=== PATIENT | female | born 1995 | race Caucasian/White ===

== ENCOUNTER 2021-08-14 00:40 | Inpatient (IN) | payer OTHER, SELFPAY ==
[2021-08-14] VITALS (8 sets, daily range): BP systolic 101–144; BP diastolic 57–92; PULSE 69–128; RESP 16–18; TEMP 36.5–37.1; O2SAT 96–98; BMI 27.6; BMI 27.5
--- NOTE | 2021-08-14 01:18 | CT_ITS ---
STUDY: CT ABDOMEN AND PELVIS WITH CONTRAST REASON FOR EXAM: Female, 26 years old. lower abd pain RADIATION DOSAGE (If Supplied By Facility): CTDIvol = ( 11.17 ) mGy, DLP = ( 854.05 ) mGycm TECHNIQUE: Transaxial images were obtained from the dome of the diaphragm to the symphysis pubis without oral contrast. IV 100mL Isovue-300 was administered. Sagittal and coronal images were reconstructed. Individualized dose optimization techniques were used for this CT. COMPARISON: None. FINDINGS: The visualized lung bases are unremarkable. The visualized portions of the heart are within normal limits. Normal liver. Normal gallbladder and extrahepatic biliary system. Normal spleen. Normal pancreas. Normal bilateral adrenal glands. Normal right kidney. Normal left kidney. Normal visualized stomach. Normal small intestine dilated loops of fluid-filled bowel.. The appendix is visualized and appears normal. Normal abdominal aorta. Normal inferior vena cava. Normal retroperitoneum. Normal urinary bladder. Normal abdominal wall. Normal osseous structures. CT/Abdomen/Pelvis W IV Cont ONLY IMPRESSION: There are dilated loops of fluid-filled bowel. Electronically Signed: Jamaal Niño MD at 3:05 EDT ,
--- NOTE | 2021-08-14 01:20 | ED.VIS.GI ---
HPI HPI - GI History of Present Illness Chief Complaint: Abd Pain Informant: patient Narrative Narrative: Patient is a 26-year-old female with history of Crohn's disease as well has what sounds like a tubo-ovarian abscess requiring surgical intervention with exploratory laparotomy presenting with worsening abdominal pain, nausea, vomiting and diarrhea. Patient states she has had 1 month of intermittent crampy abdominal pain and belching. She had decreased oral intake for the past few days and now worsening of the pain. She describes it as a constant ache but then intermittent sharp pain in her lower abdomen. She states she saw her GI doctor in [place], Dr. Barnett, about 2 weeks ago and she had an endoscopy and blood work. She was told that everything actually looked very good and the cause of her pain was not clear. Patient's last menstrual period was 1 week ago. She has not this pain is different than her Crohn's as well as her prior ovarian infection. Denies any fever or chills. States she does feel very bloated. Does admit to taking an edible prior to arrival to try to help with her pain. Denies any black or blood in her stool. Denies any sick contacts. No other complaints at this time. [facility] Medical History Acute Crohn's disease E. coli sepsis Ovarian cyst Home Medications cetirizine [Zyrtec] 10 mg PO DAILY 08/14/21 [History Last Taken Unknown] mesalamine [Apriso] 1.5 g PO BID 08/14/21 [History Last Taken Unknown] montelukast [Singulair] 10 mg PO DAILY 08/14/21 [History Last Taken Unknown] Allergy/AdvReac Type Severity Reaction Status Date / Time vancomycin Allergy Other Verified 08/14/21 00:41 Social History Smoking Status: Never smoker ROS ROS ED Constitutional Constitutional ED: Denies chills or fever(s) ENT ENT ED: Denies rhinorrhea or sore throat Cardiovascular Cardiovascular: Denies chest pain Respiratory/Chest Respiratory/Chest: Denies dyspnea Gastrointestinal Gastrointestinal: Reports abdominal pain, diarrhea, nausea and vomiting; Denies melena Genitourinary Genitourinary ED: Denies dysuria or hematuria Musculoskeletal Musculoskeletal: Denies arthralgias or myalgias Integumentary Denies rash Neurologic Neurologic: Denies headache(s) or weakness Psychiatric Psychiatric: Denies depression EXAM Physical Exam Const Vital Signs: 08/14/21 00:41 08/14/21 00:45 Temperature 98.1 F Temperature Source Temporal Pulse Rate 128 H 121 H Respiratory Rate 18 Blood Pressure 144/92 H 134/90 H Blood Pressure Mean 109 104 Pulse Ox 96 Oxygen Delivery Method Room Air Positive well nourished and well developed General Appearance ED: well developed and NAD HEENT normocephalic and atraumatic Eyes PERRL and EOMs intact bilaterally Neck supple Resp normal respiratory effort and clear to auscultation bilaterally Cardio regular rate, regular rhythm and no murmurs GI Inspection: abdominal distention Auscultation: normoactive bowel sounds and hyperactive bowel sounds Palpation: soft and tender suprapubic; Negative for guarding or rigid Back/Spine no CVA tenderness Extremity full ROM General Extremety ED: Negative for edema General Extremity: Negative for edema Neuro Sensorium / Orientation: alert Motor Exam: Negative for general weakness Psych mental status grossly normal Skin Lesions: no lesions Rashes: no rashes MDM MDM MDM Narrative Medical decision making narrative: Patient's evaluated for worsening abdominal discomfort, bloating, nausea, vomiting and some diarrhea. She does have a history of Crohn's disease. She has she had recent endoscopy with her regular GI doctor that did not show any acute pathology. On arrival to the ER patient is mildly hypertensive and tachycardic. She is given IV morphine, fluids and Zofran. She is given a liter of IV fluids. On reevaluation she does have some improvement. Abdominal exam is distended with lower abdominal tenderness to palpation. She is not peritoneal. She does have a leukocytosis of 13.7. CMP largely unremarkable. Lactate is normal. CT of the abdomen pelvis does show some free fluid in the pelvis as well as dilated small bowel. Concern is for obstruction as patient does have a history of exploratory laparotomy. Case is discussed with surgery on-call who will evaluate her for consult but feels that likely her presentation is more consistent with Crohn's disease. Recommends consult to GI. Will defer NG tube at this time per recommendation of surgery. Patient admitted for further treatment and management. She does require a dose of Zofran and morphine. Is given a second liter fluid. Tachycardia does improve while in the emergency room. Lab Data Attestation: I reviewed the patient's lab results. Labs: Laboratory Results - last 24 hr 08/14/21 08/14/21 08/14/21 01:30 01:30 01:30 WBC 13.7 H RBC 4.93 Hgb 14.3 Hct 42.3 MCV 85.8 MCH 29.0 MCHC 33.8 RDW Std Deviation 41.5 RDW Coeff of Karla 13.2 Plt Count 463 H MPV 9.3 Immature Gran % (Auto) 0.300 Neut % (Auto) 77.7 H Lymph % (Auto) 12.5 L [place] % (Auto) 8.9 Eos % (Auto) 0.2 Baso % (Auto) 0.4 Absolute Neuts (auto) 10.6 H Absolute Lymphs (auto) 1.71 Nucleated RBC % 0 Sodium 139 Potassium 3.6 Chloride 104 Carbon Dioxide 24.0 Anion Gap 11 BUN 13 Creatinine 0.77 Estim Creat Clear Calc 111.69 Est GFR (MDRD) Af Amer 117 Est GFR (MDRD) Non-Af 96 BUN/Creatinine Ratio 16.9 Glucose 119 H Lactic Acid 0.8 Calcium 9.1 Total Bilirubin 0.60 AST 11 L ALT 19 Alkaline Phosphatase 69 Total Protein 7.6 Albumin 3.5 Globulin 4.1 Albumin/Globulin Ratio 0.9 Lipase 70 L Urine Color Urine Clarity Urine pH Ur Specific [place] Urine Protein Urine Glucose (UA) Urine Ketones Urine Occult Blood Urine Nitrite Urine Bilirubin Urine Urobilinogen Ur Leukocyte Esterase Urine RBC Urine WBC Ur Squamous Epith Cells Urine Bacteria Urine Mucus Urine Test 08/14/21 01:48 WBC RBC Hgb Hct MCV MCH MCHC RDW Std Deviation RDW Coeff of Karla Plt Count MPV Immature Gran % (Auto) Neut % (Auto) Lymph % (Auto) [place] % (Auto) Eos % (Auto) Baso % (Auto) Absolute Neuts (auto) Absolute Lymphs (auto) Nucleated RBC % Sodium Potassium Chloride Carbon Dioxide Anion Gap BUN Creatinine Estim Creat Clear Calc Est GFR (MDRD) Af Amer Est GFR (MDRD) Non-Af BUN/Creatinine Ratio Glucose Lactic Acid Calcium Total Bilirubin AST ALT Alkaline Phosphatase Total Protein Albumin Globulin Albumin/Globulin Ratio Lipase Urine Color Yellow Urine Clarity Clear Urine pH 6.0 Ur Specific [place] 1.025 Urine Protein 30 H Urine Glucose (UA) Normal Urine Ketones 150 A* Urine Occult Blood Negative Urine Nitrite Negative Urine Bilirubin 1 H Urine Urobilinogen 1 H Ur Leukocyte Esterase 25 H Urine RBC 5-10 SEEN Urine WBC 0-5 SEEN Ur Squamous Epith Cells 5-10 SEEN Urine Bacteria 1+ Urine Mucus 2+ Urine Test Negative Radiography Diagnostic Testing: Clinical Impression(s) from Imaging Studies Abdomen/Pelvis CT 08/14/21 01:18 IMPRESSION: There are dilated loops of fluid-filled bowel. Electronically Signed: Jamaal Niño MD at 3:05 EDT , Discharge Plan Triage Chief Complaint: Abd Pain Other Complaint: Nausea/Vomiting/Diarrhea ED Provider: Jacqueline Garvin Dx/Rx/DC Orders Clinical Impression: Abdominal pain, Small bowel obstruction Disposition Disposition: Acute Care Hospital [facility]
[2021-08-14] MEDS: 0.9% Normal Saline 1,000 ML 1000 ML IV (01:31)
[2021-08-14] MEDS: Ondansetron 4 MG/2 ML Vial IV ×5 (01:31→22:27)
[2021-08-14] MEDS: Morphine 4 MG/ML Syringe IV ×2 (01:31→04:44)
[2021-08-14 01:38] LABS: Absolute Lymphocyte Count 1.71 X10^3/uL (0.83-4.51); Absolute Neutrophil Count 10.6 X10^3/uL (2.0-7.7); Basophil# 0.05 X10^3/uL; Basophil% 0.4 % (0-1); Eosinophil# 0.03 X10^3/uL; Eosinophils% 0.2 % (0-5); Hematocrit 42.3 % (37-47); Hemoglobin 14.3 g/dL (12.0-15.0); Lymphocyte # 1.71 X10^3/ul (0.83-4.51); Lymphocyte % 12.5 % (19-41); Mean Corp Hgb Conc 33.8 g/dL (32-36); Mean Corpuscular Volume 85.8 fL (81-99); Mean Platelet Vol. 9.3 fl (6.2-12.0); Monocyte# 1.22 X10^3/uL; Monocyte% 8.9 % (0-10); NRBC Flagged by Analyzer 0 % (0-5); Neutrophil # 10.63 X10^3/uL (2.7-7.7); Neutrophil % 77.7 % (47-70); Platelet Count 463 K/mm3 (150-450); RBC Distribution Width CV 13.2 % (11.6-14.6); RBC Distribution Width SD 41.5 fl (35.1-43.9); Red Blood Count 4.93 M/mm3 (4.2-5.4); White Blood Count 13.7 K/mm3 (4.4-11.0)
[2021-08-14 01:59] LABS: Color, Urine Yellow (Yellow); Glucose, Dipstick Normal (Normal); Leukocyte Esterase-Dipstick 25 /ul (Negative); Nitrite-Dipstick Negative (Negative); Occult Blood-Urine Negative /ul (Negative); Protein-Dipstick 30 mg/dl (Negative); Specific Gravity, Urine 1.025 (1.002-1.030); Urine Clarity Clear (Clear); Urine Urobilinogen 1 mg/dl (Normal)
[2021-08-14 02:01] LABS: Ketone-Dipstick 150 mg/dl (Negative); Urine Bilirubin Dipstick 1 mg/dL (Negative)
[2021-08-14 02:01] LABS: ALB/GLOB Ratio 0.9 RATIO (0.9-2.4); AST(SGOT) 11 U/L (15-37); Alanine Aminotransfer ALT/SGPT 19 U/L (13-56); Albumin, Serum 3.5 g/dL (3.2-5.0); Alkaline Phosphatase 69 U/L (45-117); Anion Gap 11 (5-15); BUN 13 mg/dL (7-18); BUN/Creat Ratio 16.9 RATIO (10-20); Calcium,Total 9.1 mg/dL (8.5-10.1); Chloride 104 mmol/L (98-107); Creatinine, Serum 0.77 mg/dL (0.55-1.02); EST Glomerular Filtration Rate 96 mL/min (>60); Est Glom Filt Rate - Afr Amer 117 mL/min (>60); Estimated Creatinine Clearance 111.69 ml/min; Globulin 4.1 g/dL (2.2-4.2); Glucose 119 mg/dL (74-106); Lipase 70 U/L (73-393); Potassium 3.6 mmol/L (3.5-5.1); Protein, Total 7.6 g/dL (6.4-8.2); Sodium Level 139 mmol/L (136-145)
[2021-08-14 02:03] LABS: Internal QC Validated? YES +Cl - CLEAR BKGD; Pregnancy, Urine Negative Negative
[2021-08-14 02:15] LABS: Lactic Acid 0.8 mmol/L (0.4-1.9)
[2021-08-14 02:17] LABS: Squamous Epithelial Cells - UA 5-10 SEEN /hpf (5-10)
[2021-08-14 02:18] LABS: Bacteria 1+ /hpf (None Seen); Mucous, Urine 2+ /hpf (<or=2+); Red Blood Cells-Urine 5-10 SEEN /hpf (0-5); White Blood Cells 0-5 SEEN /hpf (0-5)
--- NOTE | 2021-08-14 03:47 | EX.PCM.CON.S ---
Assessment & Plan Assessment/Plan (1) Abdominal pain: QUALIFIERS: Abdominal location: generalized Qualified Code(s): R10.84 - Generalized abdominal pain PLAN: With her being normal small intestine there is nothing that appears to be a small bowel obstruction here and at this time I would not recommend NG tube decompression. The colon itself does look dilated does look fluid-filled and is concerning for Crohn's disease. This time the patient does not need a surgical intervention recommend hospitalist admission with consultation to GI for her Crohn's disease which may or may not be active. HPI Consult Data Date of Consult: 08/14/21 HPI Narrative HPI Narrative: BARRETT HUITRON, Patient is a 26-year-old female with history of Crohn's disease as well has what sounds like a tubo-ovarian abscess requiring surgical intervention with exploratory laparotomy presenting with worsening abdominal pain, nausea, vomiting and diarrhea. Patient states she has had 1 month of intermittent crampy abdominal pain and belching. She had decreased oral intake for the past few days and now worsening of the pain. She describes it as a constant ache but then intermittent sharp pain in her lower abdomen. She states she saw her GI doctor in [place], Dr. Barnett, about 2 weeks ago and she had an endoscopy and blood work. She was told that everything actually looked very good and the cause of her pain was not clear. Patient's last menstrual period was 1 week ago. She has not this pain is different than her Crohn's as well as her prior ovarian infection. Denies any fever or chills. States she does feel very bloated. Does admit to taking an edible prior to arrival to try to help with her pain. Denies any black or blood in her stool. Denies any sick contacts. No other complaints at this time. CT scan showed Normal visualized stomach. Normal small intestine dilated loops of fluid-filled bowel.. The appendix is visualized and appears normal. [facility] Medical History Acute Crohn's disease E. coli sepsis Ovarian cyst Home Medications cetirizine [Zyrtec] 10 mg PO DAILY 08/14/21 [History Last Taken Unknown] mesalamine [Apriso] 1.5 g PO BID 08/14/21 [History Last Taken Unknown] montelukast [Singulair] 10 mg PO DAILY 08/14/21 [History Last Taken Unknown] Allergy/AdvReac Type Severity Reaction Status Date / Time vancomycin Allergy Other Verified 08/14/21 00:41 Social History Smoking Status: Never smoker ROS Constitutional Constitutional: Denies chills or fever(s) Cardiovascular Cardiovascular: Denies chest pain Respiratory/Chest Respiratory/Chest: Denies shortness of breath at rest Gastrointestinal Gastrointestinal: Reports abdominal pain, diarrhea, nausea and vomiting; Denies melena Genitourinary Genitourinary: Denies change in urinary stream Physical Exam Const alert, oriented x3 and no apparent distress General Appearance: cooperative HEENT normocephalic and head/scalp atraumatic Eyes PERRL and EOMs intact bilaterally Resp clear to auscultation bilaterally Cardio Rate: regular rate and tachycardic GI soft to palpation Inspection: Negative for abdominal distention Auscultation: normoactive bowel sounds Palpation: tender; Negative for guarding Lab / Micro Data Result Diagrams: 08/14/21 01:30 08/14/21 01:30 Labs: Laboratory Results - last 24 hr 08/14/21 01:30: WBC 13.7 H, RBC 4.93, Hgb 14.3, Hct 42.3, MCV 85.8, MCH 29.0, MCHC 33.8, RDW Std Deviation 41.5, RDW Coeff of Karla 13.2, Plt Count 463 H, MPV 9.3, Immature Gran % (Auto) 0.300, Neut % (Auto) 77.7 H, Lymph % (Auto) 12.5 L, [place] % (Auto) 8.9, Eos % (Auto) 0.2, Baso % (Auto) 0.4, Absolute Neuts (auto) 10.6 H, Absolute Lymphs (auto) 1.71, Nucleated RBC % 0 08/14/21 01:30: Sodium 139, Potassium 3.6, Chloride 104, Carbon Dioxide 24.0, Anion Gap 11, BUN 13, Creatinine 0.77, Estim Creat Clear Calc 111.69, Est GFR (MDRD) Af Amer 117, Est GFR (MDRD) Non-Af 96, BUN/Creatinine Ratio 16.9, Glucose 119 H, Calcium 9.1, Total Bilirubin 0.60, AST 11 L, ALT 19, Alkaline Phosphatase 69, Total Protein 7.6, Albumin 3.5, Globulin 4.1, Albumin/Globulin Ratio 0.9, Lipase 70 L 08/14/21 01:30: Lactic Acid 0.8 08/14/21 01:48: Urine Color Yellow, Urine Clarity Clear, Urine pH 6.0, Ur Specific [place] 1.025, Urine Protein 30 H, Urine Glucose (UA) Normal, Urine Ketones 150 A*, Urine Occult Blood Negative, Urine Nitrite Negative, Urine Bilirubin 1 H, Urine Urobilinogen 1 H, Ur Leukocyte Esterase 25 H, Urine RBC 5-10 SEEN, Urine WBC 0-5 SEEN, Ur Squamous Epith Cells 5-10 SEEN, Urine Bacteria 1+, Urine Mucus 2+, Urine Test Negative Radiology Impression Abdomen/Pelvis CT 08/14/21 01:18 IMPRESSION: There are dilated loops of fluid-filled bowel. Electronically Signed: Jamaal Niño MD at 3:05 EDT ,
--- NOTE | 2021-08-14 04:27 | PCM.HP.STD ---
HPI - General General Date of Admission: 08/14/21 HPI Narrative BARRETT HUITRON, is a 26 F who presents to the emergency room with acute abdominal pain. 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 Barnett approximately 2 weeks ago and was scoped and was given a clean bill of health. Her Crohn's medications were changed at that time. She has subsequently developed overnight abdominal pain and CT scan reveals dilated loops of bowel. Surgical consultation was done in the emergency room by Dr. Degroot and he felt it was nonsurgical at this time and that likely this is a flare-up of her Crohn's disease. Patient will be admitted and gastroenterology will be consulted. [facility] Medical History Acute Crohn's disease E. coli sepsis Ovarian cyst Home Medications cetirizine [Zyrtec] 10 mg PO DAILY 08/14/21 [History Last Taken Unknown] mesalamine [Apriso] 1.5 g PO BID 08/14/21 [History Last Taken Unknown] montelukast [Singulair] 10 mg PO DAILY 08/14/21 [History Last Taken Unknown] Allergy/AdvReac Type Severity Reaction Status Date / Time vancomycin Allergy Other Verified 08/14/21 00:41 Social History Smoking Status: Never smoker ROS Constitutional Constitutional: Denies chills or fever(s) Eyes Eyes: Denies blurry vision ENT HEENT: Denies abnormal hearing Cardiovascular Cardiovascular: Denies chest pain Respiratory/Chest Respiratory/Chest: Denies cough Gastrointestinal Gastrointestinal: Reports abdominal pain and nausea Genitourinary Genitourinary: Denies dysuria Musculoskeletal Musculoskeletal: Denies back pain Integumentary Integumentary: Denies dry skin Neurologic Neurologic: Denies abnormal gait Psychiatric Psychiatric: Denies anxiety Vital Signs Vital Signs Vital Signs: 08/14/21 00:41 08/14/21 00:45 Temperature 98.1 F Temperature Source Temporal Pulse Rate 128 H 121 H Respiratory Rate 18 Blood Pressure 144/92 H 134/90 H Blood Pressure Mean 109 104 Pulse Ox 96 Oxygen Delivery Method Room Air Weight Weight: 181 lb 10.574 oz Body Mass Index (BMI) 27.6 Physical Exam Const oriented x3 General Appearance: cooperative HEENT head/scalp atraumatic Neck supple Lymph Lymphatic: no lymphadenopathy noted Resp normal respiratory effort and clear to auscultation bilaterally Cardio regular rate, regular rhythm, S1 normal heart sound and S2 normal heart sound GI Auscultation: hypoactive bowel sounds Palpation: tender other (generalized); Negative for guarding Extremity no clubbing, cyanosis or edema Skin General Skin Exam: turgor normal Psych affect normal Results Lab / Micro Data Result Diagrams: 08/14/21 01:30 08/14/21 01:30 Labs: Laboratory Results - last 24 hr 08/14/21 01:30: WBC 13.7 H, RBC 4.93, Hgb 14.3, Hct 42.3, MCV 85.8, MCH 29.0, MCHC 33.8, RDW Std Deviation 41.5, RDW Coeff of Karla 13.2, Plt Count 463 H, MPV 9.3, Immature Gran % (Auto) 0.300, Neut % (Auto) 77.7 H, Lymph % (Auto) 12.5 L, [place] % (Auto) 8.9, Eos % (Auto) 0.2, Baso % (Auto) 0.4, Absolute Neuts (auto) 10.6 H, Absolute Lymphs (auto) 1.71, Nucleated RBC % 0 08/14/21 01:30: Sodium 139, Potassium 3.6, Chloride 104, Carbon Dioxide 24.0, Anion Gap 11, BUN 13, Creatinine 0.77, Estim Creat Clear Calc 111.69, Est GFR (MDRD) Af Amer 117, Est GFR (MDRD) Non-Af 96, BUN/Creatinine Ratio 16.9, Glucose 119 H, Calcium 9.1, Total Bilirubin 0.60, AST 11 L, ALT 19, Alkaline Phosphatase 69, Total Protein 7.6, Albumin 3.5, Globulin 4.1, Albumin/Globulin Ratio 0.9, Lipase 70 L 08/14/21 01:30: Lactic Acid 0.8 08/14/21 01:48: Urine Color Yellow, Urine Clarity Clear, Urine pH 6.0, Ur Specific [place] 1.025, Urine Protein 30 H, Urine Glucose (UA) Normal, Urine Ketones 150 A*, Urine Occult Blood Negative, Urine Nitrite Negative, Urine Bilirubin 1 H, Urine Urobilinogen 1 H, Ur Leukocyte Esterase 25 H, Urine RBC 5-10 SEEN, Urine WBC 0-5 SEEN, Ur Squamous Epith Cells 5-10 SEEN, Urine Bacteria 1+, Urine Mucus 2+, Urine Test Negative Radiology Impression Abdomen/Pelvis CT 08/14/21 01:18 IMPRESSION: There are dilated loops of fluid-filled bowel. Electronically Signed: Jamaal Niño MD at 3:05 EDT , Assessment & Plan Assessment/Plan (1) Abdominal pain: QUALIFIERS: Abdominal location: generalized Qualified Code(s): R10.84 - Generalized abdominal pain (2) Acute Crohn's disease: PLAN: 1. abdominal pain secondary to acute Crohn's disease?admit patient to general medical floor, consult gastroenterology, initiate steroid therapy and Dilaudid as needed for pain along with Zofran for nausea as needed patient will be maintained n.p.o. and start IV fluids at 125 cc/h normal saline 2. DVT prophylaxis?patient is able to ambulate to the bathroom and back at this time no prophylaxis indicated Charges/Coding Visit Charges Inpatient E&M: 35844 Init Hosp L3
[2021-08-14] MEDS: 0.9% Normal Saline 1,000 ML 999 ML IV (04:45)
[2021-08-14] MEDS: 0.9% Normal Saline 1,000 ML 125 ML IV ×4 (05:07→22:25)
[2021-08-14] MEDS: HYDROmorphone 0.5 MG/0.5 ML SYRINGE IV ×5 (05:09→22:24)
[2021-08-14 06:02] LABS: Absolute Lymphocyte Count 1.85 X10^3/uL (0.83-4.51); Absolute Neutrophil Count 5.5 X10^3/uL (2.0-7.7); Basophil# 0.04 X10^3/uL; Basophil% 0.5 % (0-1); Eosinophil# 0.03 X10^3/uL; Eosinophils% 0.4 % (0-5); Hematocrit 36.9 % (37-47); Hemoglobin 12.1 g/dL (12.0-15.0); Lymphocyte # 1.85 X10^3/ul (0.83-4.51); Lymphocyte % 22.1 % (19-41); Mean Corp Hgb Conc 32.8 g/dL (32-36); Mean Corpuscular Hgb 28.7 pg (27.0-32.0); Mean Corpuscular Volume 87.4 fL (81-99); Mean Platelet Vol. 8.6 fl (6.2-12.0); Monocyte% 10.7 % (0-10); NRBC Flagged by Analyzer 0 % (0-5); Neutrophil # 5.53 X10^3/uL (2.7-7.7); Neutrophil % 65.8 % (47-70); Platelet Count 363 K/mm3 (150-450); RBC Distribution Width CV 13.3 % (11.6-14.6); RBC Distribution Width SD 42.4 fl (35.1-43.9); Red Blood Count 4.22 M/mm3 (4.2-5.4); White Blood Count 8.4 K/mm3 (4.4-11.0)
[2021-08-14 06:40] LABS: ALB/GLOB Ratio 0.9 RATIO (0.9-2.4); AST(SGOT) 9 U/L (15-37); Alanine Aminotransfer ALT/SGPT 17 U/L (13-56); Albumin, Serum 2.8 g/dL (3.2-5.0); Alkaline Phosphatase 55 U/L (45-117); Anion Gap 5 (5-15); BUN 11 mg/dL (7-18); BUN/Creat Ratio 18.2 RATIO (10-20); Chloride 109 mmol/L (98-107); EST Glomerular Filtration Rate 127 mL/min (>60); Est Glom Filt Rate - Afr Amer 153 mL/min (>60); Estimated Creatinine Clearance 143.33 ml/min; Globulin 3.2 g/dL (2.2-4.2); Glucose 106 mg/dL (74-106); Magnesium 1.8 mg/dL (1.6-2.6); Potassium 3.6 mmol/L (3.5-5.1); Sodium Level 138 mmol/L (136-145)
[2021-08-14 09:24] LABS: Amphetamine Urine VISTA NEGATIVE (<1000 ng/mL); Barbiturate Urine VISTA NEGATIVE (< 200 ng/mL); Benzodiazepine Urine VISTA NEGATIVE (< 200 ng/mL); Cocaine Urine VISTA NEGATIVE (< 300 ng/mL); Ecstacy Urine VISTA NEGATIVE (< 500 ng/mL); Methadone Urine VISTA NEGATIVE (< 300 ng/mL); PCP Urine VISTA NEGATIVE (< 25 ng/mL); THC Urine VISTA POSITIVE (< 50 ng/mL); Vista UDS pH Range 5
[2021-08-14 09:30] LABS: Erythrocyte Sedimentation Rate 12 mm/hr (0-30)
--- NOTE | 2021-08-14 11:50 | CASEMGMT ---
RN CM Face to Face with patient for initial transition planning/care coordination assessment. RN CM introduced self and role at [facility]. Patient lying in bed, alert and oriented, mother and MIL at bedside. Patient willing to participate in assessment and is able to answer all questions appropriately. Care providers, pharmacy, and demographics verified. Patient wishes to discharge home, denies need for home health at this time. Patient states she has no further needs or concerns at this time. CM to follow for discharge planning needs that may arise. PCP: Victor Hugo Specialists: ESAU Barnett Preferred Pharmacy: [facility] retail at discharge. Insurance: [facility] Prescription Benefit: yes Living Will/HPOA: none LNOK: Living Arrangements: Patient lives with at her parents or at inlaw as they search for home to purchase. Patient states she is independent and able to ambulate stairs. Transportation: self, husand, parents DME/HHC: Patient denies DME or previous HHC Disposition Plan: Patient to discharge home with family support and follow-up plans in place. Milana AMESN, RN, CM
--- NOTE | 2021-08-14 11:51 | PN.HOSP_ITS ---
Subjective Subjective Patient seen and examined.Her mother was by her bedside. She said she wsa feeling much better. Abdominal pain had improved. She denied any nausea, vomiting or diarrhea since admission. Review of systems is otherwise negative. She is awaiting GI evaluation. Objective Data Objective Data Vital Signs: Vital Signs Temp Pulse Resp BP Pulse Ox 98.7 F 79 16 101/61 96 08/14/21 09:00 08/14/21 09:00 08/14/21 09:00 08/14/21 09:00 08/14/21 09:00 Oxygen Delivery Method Room Air Weight: 181 lb 10.574 oz Body Mass Index (BMI) 27.5 Intake & Output: Intake and Output for Last 24 Hours 08/12/21 08/13/21 08/14/21 23:59 23:59 23:59 Intake Total 2485.42 / 2485.42 Balance 2485.42 / 2485.42 Lab / Micro Data Result Diagrams: 08/14/21 05:50 08/14/21 05:50 Labs: Laboratory Results - last 24 hr 08/14/21 01:30: WBC 13.7 H, RBC 4.93, Hgb 14.3, Hct 42.3, MCV 85.8, MCH 29.0, MCHC 33.8, RDW Std Deviation 41.5, RDW Coeff of Karla 13.2, Plt Count 463 H, MPV 9.3, Immature Gran % (Auto) 0.300, Neut % (Auto) 77.7 H, Lymph % (Auto) 12.5 L, [place] % (Auto) 8.9, Eos % (Auto) 0.2, Baso % (Auto) 0.4, Absolute Neuts (auto) 10.6 H, Absolute Lymphs (auto) 1.71, Nucleated RBC % 0 08/14/21 01:30: Sodium 139, Potassium 3.6, Chloride 104, Carbon Dioxide 24.0, Anion Gap 11, BUN 13, Creatinine 0.77, Estim Creat Clear Calc 111.69, Est GFR (MDRD) Af Amer 117, Est GFR (MDRD) Non-Af 96, BUN/Creatinine Ratio 16.9, Glucose 119 H, Calcium 9.1, Total Bilirubin 0.60, AST 11 L, ALT 19, Alkaline Phosphatase 69, Total Protein 7.6, Albumin 3.5, Globulin 4.1, Albumin/Globulin Ratio 0.9, Lipase 70 L 08/14/21 01:30: Lactic Acid 0.8 08/14/21 01:48: Urine Color Yellow, Urine Clarity Clear, Urine pH 6.0, Ur Specific [place] 1.025, Urine Protein 30 H, Urine Glucose (UA) Normal, Urine Ketones 150 A*, Urine Occult Blood Negative, Urine Nitrite Negative, Urine Bilirubin 1 H, Urine Urobilinogen 1 H, Ur Leukocyte Esterase 25 H, Urine RBC 5- 10 SEEN, Urine WBC 0-5 SEEN, Ur Squamous Epith Cells 5-10 SEEN, Urine Bacteria 1+, Urine Mucus 2+, Urine Test Negative 08/14/21 01:48: Urine Opiates Screen POSITIVE H, Urine Methadone Screen NEGATIVE, Ur Barbiturates Screen NEGATIVE, Ur Phencyclidine Scrn NEGATIVE, Ur Amphetamines Screen NEGATIVE, MDMA (Ecstasy) Screen NEGATIVE, U Benzodiazepines Scrn NEGATIVE, Urine Cocaine Screen NEGATIVE, U Cannabinoids Screen POSITIVE H, Ur Drug Screen Comment 08/14/21 05:50: WBC 8.4, RBC 4.22, Hgb 12.1, Hct 36.9 L, MCV 87.4, MCH 28.7, MCHC 32.8, RDW Std Deviation 42.4, RDW Coeff of Karla 13.3, Plt Count 363, MPV 8.6, Immature Gran % (Auto) 0.500, Neut % (Auto) 65.8, Lymph % (Auto) 22.1, [place] % (Auto) 10.7 H, Eos % (Auto) 0.4, Baso % (Auto) 0.5, Absolute Neuts (auto) 5.5, Absolute Lymphs (auto) 1.85, Nucleated RBC % 0 08/14/21 05:50: Sodium 138, Potassium 3.6, Chloride 109 H, Carbon Dioxide 24.0, Anion Gap 5, BUN 11, Creatinine 0.60, Estim Creat Clear Calc 143.33, Est GFR (MDRD) Af Amer 153, Est GFR (MDRD) Non-Af 127, BUN/Creatinine Ratio 18.2, Glucose 106, Calcium 8.0 L, Magnesium 1.8, Total Bilirubin 0.50, AST 9 L, ALT 17, Alkaline Phosphatase 55, Total Protein 6.0 L, Albumin 2.8 L, Globulin 3.2, Albumin/Globulin Ratio 0.9 08/14/21 05:50: ESR 12 08/14/21 05:50: C-React Prot Ext Range 15.00 H Radiography Diagnostic Testing: Radiology Impression Abdomen/Pelvis CT 08/14/21 01:18 IMPRESSION: There are dilated loops of fluid-filled bowel. Electronically Signed: Jamaal Niño MD at 3:05 EDT Reading Location ID and State: [address] [place] [address] Tel , Service support , Physical Exam Const alert, oriented x3 and no apparent distress Exam Limitations: no limitations HEENT head/scalp atraumatic and moist oral mucous membranes Head and Scalp: normocephalic Eyes PERRL, EOMs intact bilaterally and conjunctivae normal Neck no lymphadenopathy, supple and no JVD Resp normal respiratory effort, no retractions, no use of accessory muscles and clear to auscultation bilaterally Cardio regular rate, regular rhythm, S1 normal heart sound, S2 normal heart sound and no murmurs GI normal to inspection, nondistended, normoactive bowel sounds, soft to palpation, non-tender and non-distended Extremity normal to inspection, full ROM and no clubbing, cyanosis or edema Peripheral Pulses: Yes pulses 2+ throughout Skin no rashes or lesions noted Neuro CN's II-XII intact bilaterally and moves all extremities Sensorium / Orientation: awake Psych affect normal Assessment & Plan Assessment/Plan (1) Acute Crohn's disease: (2) Abdominal pain: QUALIFIERS: Abdominal location: generalized Qualified Code(s): R10.84 - Generalized abdominal pain PLAN: #Acute flare up of Crohn's disease * improving. Abdominal pain is much better * she denies any diarrhea * on IV solumedrol. CT of the abdomen showed dilated loops of bowel * general surgery evaluated patient and thought it was all non surgical, and didnt think it was small bowel obstruction. * GI consulted; awaiting recommendations. * continue gentle hydration with IVF DVT prophylaxis: SCDs Charges/Coding Visit Charges Inpatient E&M: 91680 Subs Hosp L2
--- NOTE | 2021-08-14 17:58 | PCM.CONS.GEN ---
Assessment & Plan Assessment/Plan (1) Acute Crohn's disease: PLAN: Elevated CRP and a dilated colon possibly secondary to exacerbation of Crohn's disease. She should undergo colonoscopy to evaluate her however lower GI tract. Recommend continued steroid therapy. (2) Abdominal pain: QUALIFIERS: Abdominal location: generalized Qualified Code(s): R10.84 - Generalized abdominal pain PLAN: Abdominal pain is possibly secondary to marijuana hyperemesis syndrome. However she can have Crohn's disease of the upper GI tract which she should undergo an upper endoscopy evaluate upper GI tract. She was explained alternatives, risk, benefits including outstanding bleeding, infection, sepsis, perforation, need for Erik to . Have an ASA of 1. HPI Consult Data Date of Consult: 08/14/21 HPI Narrative HPI Narrative: BARRETT HUITRON, is a 26 F who presents to the ED with worsening abdominal pain. She has a past medical history of Crohn's disease of the terminal ileum and all the colon on Apriso therapy. She has been having intermittent crampy abdominal pain associated with nausea and vomiting for the last month. She attributed to stress due to her recent move from [facility] and her wedding is coming up later this year. She recently underwent a colonoscopy 2-1/2 weeks ago and was given a clean [employer]. However she still has been having crampy abdominal pain associate with nausea vomiting and occasional diarrhea. She has been off of her Apriso for month. In the ED she was hypertensive and tachycardic. Biochemical work-up showed elevated white blood count count at 13.5, elevated platelet count of 496. BUN/creatinine ratio was normal. She had a CT scan abdomen pelvis that showed a dilated colon in some dilated loops of small bowel. She was seen by surgery for possible small bowel obstruction. It was deemed she did not have a small bowel obstruction. At this time she still having some crampy abdominal pain but it is getting little bit better. I ordered inflammatory markers and her CRP is elevated along with a decreased albumin. I also ordered a urine drug screen and it was positive for marijuana. She does admit to eating edibles for the last 6 months to help her nausea. She does also admit to frequent showers to help her nausea and crampy abdominal pain. [facility] Medical History (Updated 08/14/21 @ 04:[address] Nickolas Joe MD) Acute Crohn's disease Anemia Anxiety Asthma E. coli sepsis Ovarian cyst Home Medications cetirizine [Zyrtec] 10 mg PO DAILY 08/14/21 [History Last Taken Unknown] mesalamine [Apriso] 1.5 g PO BID 08/14/21 [History Last Taken Unknown] montelukast [Singulair] 10 mg PO DAILY 08/14/21 [History Last Taken Unknown] Allergy/AdvReac Type Severity Reaction Status Date / Time vancomycin Allergy Other Verified 08/14/21 00:41 Social History Smoking Status: Never smoker ROS Review of Systems ROS Unobtainable: other Constitutional Constitutional: Denies fatigue, fever(s), poor appetite, weight gain or weight loss ENT HEENT: Denies mouth lesions Cardiovascular Cardiovascular: Denies abdominal bloating, abdominal edema or abdominal pain Respiratory/Chest Respiratory/Chest: Denies change in mental status, change in phlegm color, chest congestion or chest tightness Gastrointestinal Gastrointestinal: Denies belching, bloating, change in bowel habits, change in stool character, chewing difficulty, coffee ground emesis, constipation, cramping, diarrhea, dyspepsia, dysphagia, early satiety, excessive flatus, fecal incontinence, heartburn, hematemesis, hematochezia, hemorrhoids, loose stools, melena, nausea, odynophagia, rectal bleeding, tenesmus, vomiting or weight changes Genitourinary Genitourinary: Denies abdominal discomfort, burning urination or itching Musculoskeletal Musculoskeletal: Reports as per HPI; Denies muscle weakness or myalgias Integumentary Integumentary: Denies jaundice Neurologic Neurologic: Denies lack of coordination or weakness Psychiatric Psychiatric: Denies confusion, depression, memory loss, mood swings, paranoia or suicidal ideation Endocrine Endocrinology: Denies systems reviewed and no addt'l complaints, except as documented Hematologic/Lymphatic Hematologic/Lymphatic: Denies anemia, easy bleeding, easy bruising or lymphadenopathy Allergic/Immunologic Allergic/Immunologic: Denies systems reviewed and no addt'l complaints, except as documented Physical Exam Const alert General Appearance: cooperative Orientation / Consciousness: oriented to person HEENT hearing grossly normal bilaterally Head and Scalp: normal to inspection Face and Sinus: face symmetric Nose: external nose normal Mouth: oral and palatal mucosa normal Eyes conjunctivae normal General Eye: normal appearance of both eyes Neck full ROM General: normal visual inspection Lymph Lymphatic: no lymphadenopathy noted Chest inspection of chest normal and palpation of chest normal Chest: symmetrical chest wall rise Resp normal respiratory effort Effort and Inspection: able to speak in complete sentences Cardio regular rate GI non-distended Percussion: normal to percussion Rectal Exam: deferred Neuro Speech: speech normal Gait (Neuro): normal gait Lab / Micro Data Result Diagrams: 08/14/21 05:50 08/14/21 05:50 Labs: Laboratory Results - last 24 hr 08/14/21 01:30: WBC 13.7 H, RBC 4.93, Hgb 14.3, Hct 42.3, MCV 85.8, MCH 29.0, MCHC 33.8, RDW Std Deviation 41.5, RDW Coeff of Karla 13.2, Plt Count 463 H, MPV 9.3, Immature Gran % (Auto) 0.300, Neut % (Auto) 77.7 H, Lymph % (Auto) 12.5 L, [place] % (Auto) 8.9, Eos % (Auto) 0.2, Baso % (Auto) 0.4, Absolute Neuts (auto) 10.6 H, Absolute Lymphs (auto) 1.71, Nucleated RBC % 0 08/14/21 01:30: Sodium 139, Potassium 3.6, Chloride 104, Carbon Dioxide 24.0, Anion Gap 11, BUN 13, Creatinine 0.77, Estim Creat Clear Calc 111.69, Est GFR (MDRD) Af Amer 117, Est GFR (MDRD) Non-Af 96, BUN/Creatinine Ratio 16.9, Glucose 119 H, Calcium 9.1, Total Bilirubin 0.60, AST 11 L, ALT 19, Alkaline Phosphatase 69, Total Protein 7.6, Albumin 3.5, Globulin 4.1, Albumin/Globulin Ratio 0.9, Lipase 70 L 08/14/21 01:30: Lactic Acid 0.8 08/14/21 01:48: Urine Color Yellow, Urine Clarity Clear, Urine pH 6.0, Ur Specific [place] 1.025, Urine Protein 30 H, Urine Glucose (UA) Normal, Urine Ketones 150 A*, Urine Occult Blood Negative, Urine Nitrite Negative, Urine Bilirubin 1 H, Urine Urobilinogen 1 H, Ur Leukocyte Esterase 25 H, Urine RBC 5-10 SEEN, Urine WBC 0-5 SEEN, Ur Squamous Epith Cells 5-10 SEEN, Urine Bacteria 1+, Urine Mucus 2+, Urine Test Negative 08/14/21 01:48: Urine Opiates Screen POSITIVE H, Urine Methadone Screen NEGATIVE, Ur Barbiturates Screen NEGATIVE, Ur Phencyclidine Scrn NEGATIVE, Ur Amphetamines Screen NEGATIVE, MDMA (Ecstasy) Screen NEGATIVE, U Benzodiazepines Scrn NEGATIVE, Urine Cocaine Screen NEGATIVE, U Cannabinoids Screen POSITIVE H, Ur Drug Screen Comment 08/14/21 05:50: WBC 8.4, RBC 4.22, Hgb 12.1, Hct 36.9 L, MCV 87.4, MCH 28.7, MCHC 32.8, RDW Std Deviation 42.4, RDW Coeff of Karla 13.3, Plt Count 363, MPV 8.6, Immature Gran % (Auto) 0.500, Neut % (Auto) 65.8, Lymph % (Auto) 22.1, [place] % (Auto) 10.7 H, Eos % (Auto) 0.4, Baso % (Auto) 0.5, Absolute Neuts (auto) 5.5, Absolute Lymphs (auto) 1.85, Nucleated RBC % 0 08/14/21 05:50: Sodium 138, Potassium 3.6, Chloride 109 H, Carbon Dioxide 24.0, Anion Gap 5, BUN 11, Creatinine 0.60, Estim Creat Clear Calc 143.33, Est GFR (MDRD) Af Amer 153, Est GFR (MDRD) Non-Af 127, BUN/Creatinine Ratio 18.2, Glucose 106, Calcium 8.0 L, Magnesium 1.8, Total Bilirubin 0.50, AST 9 L, ALT 17, Alkaline Phosphatase 55, Total Protein 6.0 L, Albumin 2.8 L, Globulin 3.2, Albumin/Globulin Ratio 0.9 08/14/21 05:50: ESR 12 08/14/21 05:50: C-React Prot Ext Range 15.00 H Radiology Impression Abdomen/Pelvis CT 08/14/21 01:18 IMPRESSION: There are dilated loops of fluid-filled bowel. Electronically Signed: Jamaal Niño MD at 3:05 EDT , Charges/Coding Visit Charges Inpatient E&M: 36059 Init Hosp L2
[2021-08-14] MEDS: Bisacodyl 5 MG Tablet 20 MG PO (18:19)
[2021-08-14] MEDS: Electrolyte Solution/Peg's 4000 ML PO (18:47)
[2021-08-14] MEDS: MELATONIN 3 MG TABLET PO (22:09)
[2021-08-14] MEDS: Metoclopramide 10 MG/2 ML Vial IV (23:38)
[2021-08-14] MEDS: 0.9% Saline Lock 10 ML Syringe IV (23:42)
[2021-08-14] MEDS: Magnesium Citrate 300 ML PO (23:47)
[2021-08-15] VITALS (11 sets, daily range): BP systolic 93–116; BP diastolic 52–74; PULSE 68–99; RESP 14–16; TEMP 36.2–37; O2SAT 91–100; BMI 27.6
--- NOTE | 2021-08-15 | EGD_PTH ---
PATIENT: BARRETT CONN LOC: [facility] U#:[id number] AGE/SX: 26/F ROOM: [facility] RE08/14/[address]: Dr. Lo Barrera MD : 1995 BED: 1 DIS: 08/16/2021 SPEC #: [id number] RECD: 08/15/21 14:33 STATUS: REBA LEZAMA #: [id number] TED: 08/15/21 00:[address]: Yao Marcelo DEPT: SURGICAL PATHOLOGY RECD BY: Julianna Giles ENTERED: 08/16/21 07:37 SP TYPE: EGD BIOPSY OTHR DR: MD Dr. Nickolas Mcmahon MD Tissues: A - Duodenum, NOS B - Esophagus, NOS C - Ileum, NOS Procedures: Special Stain Group II Surgery Specimen Level IV Alcian Blue/PAS (control) Comments: @ Ordering doctor for SUIV edited from to @ by RGOOD at 08/16/21 1350 @ Submitting doctor edited from to @ by RGOOD at 08/16/21 1350 HEADER OPERATION: Colonoscopy, EGD ([facility]), biopsy PRE-OP DIAGNOSIS: Acute Crohn?s disease, E. coli sepsis, ovarian cyst TISSUE SUBMITTED: A ? Duodenum biopsy, B ? Distal esophagus biopsy, C ? Terminal ileum biopsy MICROSCOPIC DIAGNOSIS A. Duodenum, biopsy: Fragments of duodenal mucosa, no pathologic diagnosis. B. Distal esophagus, biopsy: Fragments of gastroesophageal mucosa with chronic inflammation. Intestinal metaplasia (goblet cell metaplasia) not identified. See comment. C. Terminal ileum, biopsy: Fragments of small intestinal mucosa with focal ulceration, acute and chronic inflammation, granulation tissue reaction and glandular distortion. See comment. SJ:reyes 08/17/2021 COMMENT B. Alcian blue/PAS stain with matched control is used in the evaluation of the specimen. C. Cryptitis, crypt abscesses or granulomas are not seen. Correlation with clinical, endoscopic findings and appropriate follow up are necessary. MICROSCOPIC DESCRIPTION Slides are reviewed. GROSS DESCRIPTION A - Received in fixative is one container labeled with the patient's name and designated duodenal biopsy. The specimen consists of multiple irregular fragments of light son soft tissue that in aggregate measure 1 x 0.2 x 0.1 cm. The specimen is totally submitted in one cassette. B - Received in fixative is one container labeled with the patient's name and designated distal esophagus biopsy. The specimen consists of multiple irregular fragments of light son soft tissue that in aggregate measure 0.5 x 0.5 x 0.1 cm. The specimen is totally submitted in one cassette. C - Received in fixative is one container labeled with the patient's name and designated terminal ileum biopsy. The specimen consists of multiple irregular fragments of light son soft tissue that in aggregate measure 0.6 x 0.3 x 0.1 cm. The specimen is totally submitted in one cassette. / SJ:rg 08/16/2021 TC:2 CPT: 39226 x3, 48535
[2021-08-15] MEDS: Ondansetron 4 MG/2 ML Vial IV ×2 (04:41→14:31)
[2021-08-15] MEDS: HYDROmorphone 0.5 MG/0.5 ML SYRINGE IV ×3 (04:43→18:56)
[2021-08-15] MEDS: 0.9% Normal Saline 1,000 ML 125 ML IV ×3 (05:42→21:26)
[2021-08-15] MEDS: 0.9% Saline Lock 10 ML Syringe IV ×2 (05:45→08:16)
[2021-08-15 06:40] LABS: Absolute Lymphocyte Count 1.26 X10^3/uL (0.83-4.51); Absolute Neutrophil Count 7.9 X10^3/uL (2.0-7.7); Basophil# 0.01 X10^3/uL; Basophil% 0.1 % (0-1); Hematocrit 36.7 % (37-47); Hemoglobin 11.8 g/dL (12.0-15.0); Lymphocyte # 1.26 X10^3/ul (0.83-4.51); Lymphocyte % 12.7 % (19-41); Mean Corp Hgb Conc 32.2 g/dL (32-36); Mean Corpuscular Hgb 28.4 pg (27.0-32.0); Mean Corpuscular Volume 88.2 fL (81-99); NRBC Flagged by Analyzer 0 % (0-5); Neutrophil # 7.93 X10^3/uL (2.7-7.7); Neutrophil % 79.8 % (47-70); Platelet Count 348 K/mm3 (150-450); RBC Distribution Width CV 13.1 % (11.6-14.6); RBC Distribution Width SD 42.5 fl (35.1-43.9); Red Blood Count 4.16 M/mm3 (4.2-5.4); White Blood Count 9.9 K/mm3 (4.4-11.0)
--- NOTE | 2021-08-15 07:00 | NURSING ---
Pt had 2 enemas so far this am. Bowels are having loose brown output. Pt states she is less distended.
[2021-08-15 07:10] LABS: ALB/GLOB Ratio 0.8 RATIO (0.9-2.4); AST(SGOT) 10 U/L (15-37); Alanine Aminotransfer ALT/SGPT 17 U/L (13-56); Albumin, Serum 2.8 g/dL (3.2-5.0); Alkaline Phosphatase 55 U/L (45-117); Anion Gap 7 (5-15); BUN 10 mg/dL (7-18); BUN/Creat Ratio 20.2 RATIO (10-20); Calcium,Total 8.1 mg/dL (8.5-10.1); Chloride 107 mmol/L (98-107); EST Glomerular Filtration Rate 159 mL/min (>60); Est Glom Filt Rate - Afr Amer 193 mL/min (>60); Globulin 3.5 g/dL (2.2-4.2); Glucose 112 mg/dL (74-106); Potassium 3.7 mmol/L (3.5-5.1); Protein, Total 6.3 g/dL (6.4-8.2); Sodium Level 136 mmol/L (136-145)
[2021-08-15] MEDS: Metoclopramide 10 MG/2 ML Vial IV (08:16)
--- NOTE | 2021-08-15 08:47 | RAD_ITS ---
STUDY: X-RAY - ABDOMEN/PELVIS REASON FOR EXAM: Female, 26 years old. Constipation TECHNIQUE: Single AP view of the abdomen / pelvis. COMPARISON: None. FINDINGS: Normal visualized lung bases. There is a moderate amount of colonic fecal material. The visualized liver, spleen and kidneys are grossly normal in size and morphology. Normal soft tissue structures. Normal visualized osseous structures. RAD/Abdomen Single View (Portable) IMPRESSION: Moderate amount of fecal material is seen in the colon. Electronically Signed: Mushtaq Dailey MD at 9:44 EDT ,
--- NOTE | 2021-08-15 09:20 | NURSING ---
soap suds enema 1000mL given at this time, patient able to hold for approx 5 minutes, XL BM liquid brown in color
--- NOTE | 2021-08-15 12:18 | NURSING ---
Endo called for transport time of 1530 at approx 1100, at this time transport arrived to floor to transfer pt to endo now, this RN called Radha in Endo to notify of not clear BMs after bowel prep, mag citrate, and 3 soap suds. Radha discussed with Dr. Marcelo and pt still ok to transfer to endo for EGD.
--- NOTE | 2021-08-15 12:56 | PN.HOSP_ITS ---
Subjective Subjective Patient seen and examined. She has no complaints and had an uneventful night. Nausea and vomiting has largely resolved. Review of systems is otherwise negative. Objective Data Objective Data Vital Signs: Vital Signs Temp Pulse Resp BP Pulse Ox 97.6 F L 74 14 110/74 98 08/15/21 09:30 08/15/21 09:30 08/15/21 09:30 08/15/21 09:30 08/15/21 09:30 Oxygen Delivery Method Room Air Weight: 181 lb 10.574 oz Body Mass Index (BMI) 27.6 Intake & Output: Intake and Output for Last 24 Hours 08/13/21 08/14/21 08/15/21 23:59 23:59 23:59 Intake Total 4162.51 / 8162.51 5150.42 / 5150.42 Balance 4162.51 / 8162.51 5150.42 / 5150.42 Lab / Micro Data Result Diagrams: 08/15/21 06:15 08/15/21 06:15 Labs: Laboratory Results - last 24 hr 08/15/21 06:15: WBC 9.9, RBC 4.16 L, Hgb 11.8 L, Hct 36.7 L, MCV 88.2, MCH 28.4, MCHC 32.2, RDW Std Deviation 42.5, RDW Coeff of Karla 13.1, Plt Count 348, MPV 9.0, Immature Gran % (Auto) 0.400, Neut % (Auto) 79.8 H, Lymph % (Auto) 12.7 L, [place] % (Auto) 7.0, Eos % (Auto) 0.0, Baso % (Auto) 0.1, Absolute Neuts (auto) 7.9 H, Absolute Lymphs (auto) 1.26, Nucleated RBC % 0 08/15/21 06:15: Sodium 136, Potassium 3.7, Chloride 107, Carbon Dioxide 22.0, Anion Gap 7, BUN 10, Creatinine 0.50 L, Estim Creat Clear Calc 172.00, Est GFR (MDRD) Af Amer 193, Est GFR (MDRD) Non-Af 159, BUN/Creatinine Ratio 20.2 H, Glucose 112 H, Calcium 8.1 L, Total Bilirubin 0.50, AST 10 L, ALT 17, Alkaline Phosphatase 55, Total Protein 6.3 L, Albumin 2.8 L, Globulin 3.5, Albumin/Globulin Ratio 0.8 L Micro: Microbiology 08/15/21 01:21 Stool Stool Lactoferrin - Final 08/15/21 01:21 Stool Enteric Bacteriology - Final 08/15/21 01:21 Stool C. difficile DNA Amplification - Final 08/14/21 01:48 Urine, Clean Catch Urine Culture - Final Mixed Gram Positive Organisms Radiography Diagnostic Testing: Radiology Impression Abdomen/Pelvis CT 08/14/21 01:18 IMPRESSION: There are dilated loops of fluid-filled bowel. Electronically Signed: Jamaal Niño MD at 3:05 EDT , ADDENDUM: 08/15/21 0953 IMPRESSION: undefined KUB X-Ray 08/15/21 08:47 IMPRESSION: Moderate amount of fecal material is seen in the colon. Electronically Signed: Mushtaq Dailey MD at 9:44 EDT , Physical Exam Const alert, oriented x3 and no apparent distress General Appearance: cooperative Exam Limitations: no limitations HEENT head/scalp atraumatic and moist oral mucous membranes Head and Scalp: normocephalic Eyes PERRL, EOMs intact bilaterally and conjunctivae normal Neck no lymphadenopathy, supple and no JVD Lymph Lymphatic: no lymphadenopathy noted Resp normal respiratory effort, no retractions, no use of accessory muscles and clear to auscultation bilaterally Cardio regular rate, regular rhythm, S1 normal heart sound, S2 normal heart sound and no murmurs GI normal to inspection, nondistended, normoactive bowel sounds, soft to palpation, non-tender and non-distended Auscultation: hypoactive bowel sounds Palpation: tender other (generalized); Negative for guarding Extremity normal to inspection, full ROM and no clubbing, cyanosis or edema Skin no rashes or lesions noted General Skin Exam: turgor normal Neuro CN's II-XII intact bilaterally and moves all extremities Sensorium / Orientation: awake Psych affect normal Assessment & Plan Assessment/Plan (1) Acute Crohn's disease: (2) Abdominal pain: QUALIFIERS: Abdominal location: generalized Qualified Code(s): R10.84 - Generalized abdominal pain PLAN: #Acute flare up of Crohn's disease * improving. * she denies any diarrhea * on IV solumedrol. CT of the abdomen showed dilated loops of bowel * general surgery evaluated patient and thought it was all non surgical, and didnt think it was small bowel obstruction. * GI on board. For EGD ad colonoscopy today for further evaluation. * continue gentle hydration with IVF DVT prophylaxis: SCDs Charges/Coding Visit Charges Inpatient E&M: 94822 Subs Hosp L2
--- NOTE | 2021-08-15 13:30 | OP.CCLET_ITS ---
12/28/2021 Lady Osman Re : Upper GI endoscopy procedure for Aparna Veras Dear Jacqui This procedure was performed on Sunday, August 15, 2021. My impressions and recommendations are as follows: Impressions : - [place] Grade A reflux esophagitis. Biopsied. - Medium-sized hiatal hernia. - Erythematous duodenopathy. Biopsied. Recommendations : - Await pathology results. - Await pathology results. - Continue present medications. My findings are described in the full procedure note, which is enclosed. If I can be of further assistance, please feel free to contact me at . Sincerely, Yao Marcelo, 08/15/2021 1:29:46 PM This report has been signed electronically.
--- NOTE | 2021-08-15 13:30 | OP.EGD_ITS ---
Patient Name: Aparna Veras Procedure Date: 08/15/2021 12:32 PM Date of : 1995 Age: 26 Procedure: Upper GI endoscopy Indications: Epigastric abdominal pain Providers: Yao Marcelo DO Medicines: Monitored Anesthesia Care Patient Profile: This is a 26 year old female. Refer to note in patient chart for documentation of history and physical. Patient has symptoms. She is status post colonoscopy (normal). Complications: No immediate complications. Procedure: Pre-Anesthesia Assessment: - Prior to the procedure, a History and Physical was performed, and patient medications and allergies were reviewed. The risks and benefits of the procedure and the sedation options and risks were discussed with the patient. All questions were answered and informed consent was obtained. Patient identification and proposed procedure were verified by the physician in the pre-procedure area. Mental Status Examination: alert and oriented. Airway Examination: normal oropharyngeal airway and neck mobility. Respiratory Examination: clear to auscultation. CV Examination: normal. Prophylactic Antibiotics: The patient does not require prophylactic antibiotics. Prior Anticoagulants: The patient has taken no previous anticoagulant or antiplatelet agents. After reviewing the risks and benefits, the patient was deemed in satisfactory condition to undergo the procedure. The anesthesia plan was to use moderate sedation / analgesia (conscious sedation). Immediately prior to administration of medications, the patient was re-assessed for adequacy to receive sedatives. The heart rate, respiratory rate, oxygen saturations, blood pressure, adequacy of pulmonary ventilation, and response to care were monitored throughout the procedure. The physical status of the patient was re-assessed after the procedure. After obtaining informed consent, the endoscope was passed under direct vision. Throughout the procedure, the patient's blood pressure, pulse, and oxygen saturations were monitored continuously. The colonoscope was introduced through the mouth, and advanced to the second part of duodenum. The upper GI endoscopy was accomplished without difficulty. The patient tolerated the procedure well. Scope In: 12:49:08 PM Scope Out: 12:54:28 PM Total Procedure Duration Time 0 hours 5 minutes 20 seconds Findings: LA Grade A (one or more mucosal breaks less than 5 mm, not extending between tops of 2 mucosal folds) esophagitis with no bleeding was found 38 to 40 cm from the incisors. Biopsies were taken with a cold forceps for histology. Verification of patient identification for the specimen was done. Estimated blood loss was minimal. A medium-sized hiatal hernia was present. Patchy mildly erythematous mucosa without active bleeding and with no stigmata of bleeding was found in the first portion of the duodenum. Biopsies were taken with a cold forceps for histology. Impression: - LA Grade A reflux esophagitis. Biopsied. - Medium-sized hiatal hernia. - Erythematous duodenopathy. Biopsied. Recommendation: - Await pathology results. - Await pathology results. - Continue present medications. Procedure Code(s): --- Professional --- 18267, Esophagogastroduodenoscopy, flexible, transoral; with biopsy, single or multiple CPT copyright 2017 [employer]. All rights reserved. The codes documented in this report are preliminary and upon slip dumper review may be revised to meet current compliance requirements. Yao Marcelo DO 08/15/2021 1:29:46 PM This report has been signed electronically. Number of Addenda: 1 Note Initiated On: 08/15/2021 12:32 PM Addendum Number: 1 Addendum Date: 12/28/2021 6:17:45 AM MAC was used as sedation for this procedure. Yao Marcelo DO 12/28/2021 6:17:49 AM This report has been signed electronically.
--- NOTE | 2021-08-15 13:33 | OP.COLON_ITS ---
Patient Name: Aparna Veras Procedure Date: 08/15/2021 12:56 PM Date of : 1995 Age: 26 Procedure: Colonoscopy Indications: Abdominal pain in the right lower quadrant, Crohn's disease of the small bowel and colon Providers: Yao Marcelo DO Medicines: Monitored Anesthesia Care Patient Profile: This is a 26 year old female. Refer to note in patient chart for documentation of history and physical. Patient has symptoms. She is status post colonoscopy (normal). She is status post colonoscopy for biopsy. Last Colonoscopy: 2 weeks ago. Complications: No immediate complications. Procedure: Pre-Anesthesia Assessment: - Prior to the procedure, a History and Physical was performed, and patient medications and allergies were reviewed. The risks and benefits of the procedure and the sedation options and risks were discussed with the patient. All questions were answered and informed consent was obtained. Patient identification and proposed procedure were verified by the physician in the pre-procedure area. Mental Status Examination: alert and oriented. Airway Examination: normal oropharyngeal airway and neck mobility. Respiratory Examination: clear to auscultation. CV Examination: normal. Prophylactic Antibiotics: The patient does not require prophylactic antibiotics. Prior Anticoagulants: The patient has taken no previous anticoagulant or antiplatelet agents. After reviewing the risks and benefits, the patient was deemed in satisfactory condition to undergo the procedure. The anesthesia plan was to use moderate sedation / analgesia (conscious sedation). Immediately prior to administration of medications, the patient was re-assessed for adequacy to receive sedatives. The heart rate, respiratory rate, oxygen saturations, blood pressure, adequacy of pulmonary ventilation, and response to care were monitored throughout the procedure. The physical status of the patient was re-assessed after the procedure. After I obtained informed consent, the scope was passed under direct vision. Throughout the procedure, the patient's blood pressure, pulse, and oxygen saturations were monitored continuously. The colonoscope was introduced through the anus and advanced to the terminal ileum. The colonoscopy was performed without difficulty. The patient tolerated the procedure well. The quality of the bowel preparation was unsatisfactory. Scope In: 1:14:00 PM Scope Withdrawal Time 0 hours 5 minutes 34 seconds Scope Out: 1:25:14 PM Total Procedure Duration Time 0 hours 11 minutes 14 seconds Findings: Diffuse inflammation, severe and characterized by congestion (edema), erythema, friability, granularity and aphthous ulcerations was found in the distal ileum and in the terminal ileum. Biopsies were taken with a cold forceps for histology. Verification of patient identification for the specimen was done. Estimated blood loss was minimal. A moderate amount of stool was found in the entire colon, interfering with visualization. Lavage of the area was performed using 50 - 200 mL of sterile water, resulting in clearance with fair visualization. Impression: - Preparation of the colon was unsatisfactory. - Crohn's disease with ileitis. Biopsied. - Stool in the entire examined colon. Recommendation: - Return patient to [facility] care. - Resume previous diet. - Continue present medications. - Await pathology results. - Repeat colonoscopy for surveillance based on pathology results. Procedure Code(s): --- Professional --- 39751, Colonoscopy, flexible; with biopsy, single or multiple CPT copyright 2017 [employer]. All rights reserved. The codes documented in this report are preliminary and upon neighborhood planner review may be revised to meet current compliance requirements. Yao Marcelo DO 08/15/2021 1:33:15 PM This report has been signed electronically. Number of Addenda: 1 Note Initiated On: 08/15/2021 12:56 PM Addendum Number: 1 Addendum Date: 12/28/2021 6:17:56 AM MAC was used as sedation for this procedure. Yao Marcelo DO 12/28/2021 6:18:03 AM This report has been signed electronically.
--- NOTE | 2021-08-15 13:33 | OP.CCLET_ITS ---
12/28/2021 Jacqui Re : Colonoscopy procedure for Aparna Veras Dear Jacqui This procedure was performed on Sunday, August 15, 2021. My impressions and recommendations are as follows: Impressions : - Preparation of the colon was unsatisfactory. - Crohn's disease with ileitis. Biopsied. - Stool in the entire examined colon. Recommendations : - Return patient to [facility] for ongoing care. - Resume previous diet. - Continue present medications. - Await pathology results. - Repeat colonoscopy for surveillance based on pathology results. My findings are described in the full procedure note, which is enclosed. If I can be of further assistance, please feel free to contact me at . Sincerely, Yao Marcelo, 08/15/2021 1:33:15 PM This report has been signed electronically.
--- NOTE | 2021-08-15 14:34 | PCM.DC ---
Discharge Instructions Diet Discharge Diet: Low fat / Low cholesterol Activity Discharge Activity: Return to Normal Activity Dressing / Incision Call your doctor if you observe: Fever of 101 or Higher, Shortness of breath, Swelling in the ankles and Uncontrolled pain Follow Up Care Test Results: Test results from this visit will be discussed in further detail at your follow-up appointment, if applicable. Discharge Plan Admission Admit Date/Time: 08/14/21 04:37 Primary Reason for Your Visit: flare up of Crohn's disease Attending Provider: Lo Barrera Consulting Providers: Nickolas Joe Instructions Patient Instructions: What Is Crohn's Disease, Crohn Disease Lifestyle Manage Discharge Orders/Prescriptions Prescriptions: Continued montelukast [Singulair] 10 mg Tablet 10 mg PO DAILY RF: 0 mesalamine [Apriso] 0.375 gram Capsule,Extended Release 24hr 1.5 g PO BID RF: 0 Zyrtec 10 mg Capsule 10 mg PO DAILY RF: 0 Referrals / Follow Up: VICENTE BAKER [Other] - Within 2 Weeks Disposition Disposition (needs filled in before D/C Order can be placed): Home, Self Care
[2021-08-15] MEDS: MELATONIN 3 MG TABLET PO (21:25)
[2021-08-16 03:34] VITALS: BP 109/62; PULSE 68; RESP 18; TEMP 36.8; O2SAT 98
[2021-08-16] MEDS: 0.9% Normal Saline 1,000 ML 125 ML IV (05:10)
[2021-08-16 05:27] LABS: Absolute Lymphocyte Count 1.28 X10^3/uL (0.83-4.51); Absolute Neutrophil Count 8.7 X10^3/uL (2.0-7.7); Basophil# 0.01 X10^3/uL; Basophil% 0.1 % (0-1); Hematocrit 35.4 % (37-47); Hemoglobin 11.5 g/dL (12.0-15.0); Lymphocyte # 1.28 X10^3/ul (0.83-4.51); Lymphocyte % 11.8 % (19-41); Mean Corp Hgb Conc 32.5 g/dL (32-36); Mean Corpuscular Hgb 28.6 pg (27.0-32.0); Mean Corpuscular Volume 88.1 fL (81-99); Monocyte# 0.79 X10^3/uL; Monocyte% 7.3 % (0-10); NRBC Flagged by Analyzer 0 % (0-5); Neutrophil # 8.73 X10^3/uL (2.7-7.7); Neutrophil % 80.3 % (47-70); Platelet Count 309 K/mm3 (150-450); RBC Distribution Width CV 13.4 % (11.6-14.6); RBC Distribution Width SD 43.5 fl (35.1-43.9); Red Blood Count 4.02 M/mm3 (4.2-5.4); White Blood Count 10.9 K/mm3 (4.4-11.0)
[2021-08-16] MEDS: HYDROmorphone 0.5 MG/0.5 ML SYRINGE IV ×2 (05:31→10:12)
[2021-08-16 06:08] LABS: ALB/GLOB Ratio 0.8 RATIO (0.9-2.4); AST(SGOT) 9 U/L (15-37); Alanine Aminotransfer ALT/SGPT 17 U/L (13-56); Albumin, Serum 2.7 g/dL (3.2-5.0); Alkaline Phosphatase 51 U/L (45-117); Anion Gap 5 (5-15); BUN 8 mg/dL (7-18); Chloride 109 mmol/L (98-107); Creatinine, Serum 0.53 mg/dL (0.55-1.02); EST Glomerular Filtration Rate 147 mL/min (>60); Est Glom Filt Rate - Afr Amer 178 mL/min (>60); Estimated Creatinine Clearance 162.26 ml/min; Globulin 3.4 g/dL (2.2-4.2); Glucose 112 mg/dL (74-106); Potassium 3.8 mmol/L (3.5-5.1); Protein, Total 6.1 g/dL (6.4-8.2); Sodium Level 140 mmol/L (136-145)
[2021-08-16 07:53] VITALS: BP 110/73; PULSE 63; RESP 18; TEMP 36.4; O2SAT 97
[2021-08-16] MEDS: Ondansetron 4 MG/2 ML Vial IV (07:57)
[2021-08-16] MEDS: 0.9% Saline Lock 10 ML Syringe IV ×2 (07:57→10:12)
[2021-08-16 08:04] VITALS: O2SAT 95
--- NOTE | 2021-08-16 11:12 | DS.PCM_ITS ---
Providers Date of Admission: 08/14/21 Primary Care Physician: VICENTE BAKER Consultations 08/14/21 04:56 Consult: Gastroenterology Routine Consulting Provider: [facility] Reason for Consult: Crohn's disease EMERGENT Consult: No MD Notified: Yes Date Notified: 08/14/21 Time Notified: 04:39 Method of Notification: Text Reason For Visit: ACUTE CROHNS DISEASE Diagnosis Discharge Diagnosis (1) Acute Crohn's disease: Status: Acute Code(s): K50.90 - Crohn's disease, unspecified, without complications (2) Abdominal pain: Status: Acute Code(s): R10.9 - Unspecified abdominal pain Qualifiers: Abdominal location: generalized Qualified Code(s): R10.84 - Generalized abdominal pain Medications at Discharge Home Medications Zyrtec 10 mg PO DAILY 08/14/21 mesalamine [Apriso] 1.5 g PO BID 08/14/21 montelukast [Singulair] 10 mg PO DAILY 08/14/21 Hospital Course Operations None Procedures Colonoscopy and EGD Summary of Care Provided Minutes Spent on Discharge: 45 Hospital Course: Patient is a 26-year-old female with a past medical history as outlined was admitted through the ED on 08/14/2021 with a complaint of acute abdominal pain. 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 She states she had a colonoscopy and was told that all was well. Her Crohn's disease medication was changed at that time. Abdominal pain subsequently developed and she came into the ED with CT of the abdomen showed dilated loops of bowel. There was concern for small bowel obstruction so general surgery was consulted and they did not think that it was a surgical issue but thought it was more likely due to a flareup of her Crohn's disease. She was therefore admitted to be managed for acute flareup of Crohn's disease and gastroenterology was consulted. She was hydrated with fluids and started on IV steroids. She had colonoscopy which showed unsatisfactory prep and showed Crohn's disease with ileitis. This was biopsied. She also had EGD which showed grade a reflux esophagitis and erythematous duodenopathy which were both biopsied and medium size hiatal hernia. Her pain improved and she felt much better. She was discharged on 08/16/2021 and is follow-up with her primary care doctor and gastroenterology. Patient seen and examined prior to discharge. She had no active complaints and said abdominal pain had improved and she felt much better. Review of systems otherwise negative. Labs and vitals reviewed. Home medication reviewed and reconciled. Physical Exam Const alert, oriented x3 and no apparent distress General Appearance: cooperative Exam Limitations: no limitations HEENT normocephalic, head/scalp atraumatic, hearing grossly normal bilaterally and moist oral mucous membranes Eyes PERRL, EOMs intact bilaterally and conjunctivae normal Neck no lymphadenopathy, supple and no JVD Lymph Lymphatic: no lymphadenopathy noted Resp normal respiratory effort, no retractions, no use of accessory muscles and clear to auscultation bilaterally Cardio regular rate, regular rhythm, S1 normal heart sound, S2 normal heart sound and no murmurs GI normal to inspection, nondistended, normoactive bowel sounds, soft to palpation, non-tender and non-distended Auscultation: hypoactive bowel sounds Palpation: tender other (generalized); Negative for guarding Extremity normal to inspection, full ROM and no clubbing, cyanosis or edema Skin no rashes or lesions noted General Skin Exam: turgor normal Neuro CN's II-XII intact bilaterally and moves all extremities Sensorium / Orientation: awake Psych affect normal Weight / BMI Weight Weight: 181 lb 10.574 oz Body Mass Index (BMI) 27.6 ABG / Lab / Microbiology Data Result Diagrams: 08/16/21 04:58 08/16/21 04:58 Laboratory: Laboratory Results - last 24 hr 08/16/21 04:58: WBC 10.9, RBC 4.02 L, Hgb 11.5 L, Hct 35.4 L, MCV 88.1, MCH 28.6, MCHC 32.5, RDW Std Deviation 43.5, RDW Coeff of Karla 13.4, Plt Count 309, MPV 9.0, Immature Gran % (Auto) 0.500, Neut % (Auto) 80.3 H, Lymph % (Auto) 11.8 L, [place] % (Auto) 7.3, Eos % (Auto) 0.0, Baso % (Auto) 0.1, Absolute Neuts (auto) 8.7 H, Absolute Lymphs (auto) 1.28, Nucleated RBC % 0 08/16/21 04:58: Sodium 140, Potassium 3.8, Chloride 109 H, Carbon Dioxide 26.0, Anion Gap 5, BUN 8, Creatinine 0.53 L, Estim Creat Clear Calc 162.26, Est GFR (MDRD) Af Amer 178, Est GFR (MDRD) Non-Af 147, BUN/Creatinine Ratio 15.0, Glucose 112 H, Calcium 8.0 L, Total Bilirubin 0.40, AST 9 L, ALT 17, Alkaline Phosphatase 51, Total Protein 6.1 L, Albumin 2.7 L, Globulin 3.4, Albumin/Globulin Ratio 0.8 L Microbiology: Microbiology 08/15/21 01:21 Stool Stool Lactoferrin - Final 08/15/21 01:21 Stool Enteric Bacteriology - Final 08/15/21 01:21 Stool C. difficile DNA Amplification - Final 08/14/21 01:48 Urine, Clean Catch Urine Culture - Final Mixed Gram Positive Organisms D/C Instructions Discharge Diet: Low fat / Low cholesterol Call your doctor if you observe: Fever of 101 or Higher, Shortness of breath, Swelling in the ankles and Uncontrolled pain Meaningful Use Info Meaningful Use Diagnoses (Choose all that apply): None applicable Discharge Plan Admission Admit Date/Time: 08/14/21 04:37 Primary Reason for Your Visit: flare up of Crohn's disease Attending Provider: Lo Barrera Consulting Providers: Nickolas Joe Instructions Patient Instructions: What Is Crohn's Disease, Crohn Disease Lifestyle Manage Discharge Orders/Prescriptions Prescriptions: Continued montelukast [Singulair] 10 mg Tablet 10 mg PO DAILY RF: 0 mesalamine [Apriso] 0.375 gram Capsule,Extended Release 24hr 1.5 g PO BID RF: 0 Zyrtec 10 mg Capsule 10 mg PO DAILY RF: 0 Referrals / Follow Up: VICENTE BAKER [Other] - Within 2 Weeks FriendYao DO [STAFF PHYSICIAN] - Within 2 Weeks Disposition Disposition (needs filled in before D/C Order can be placed): Home, Self Care Charges/Coding Visit Charges Inpatient E&M: 13151 Disch Hosp
--- NOTE | 2021-08-16 13:35 | PN_ITS ---
Subjective Subjective Patient is feeling a lot better and she is scheduled to go home today. I went over in detail the findings from her upper lower endoscopy. She was satisfied with the results. She is not having any abdominal pain and she is having soft liquid bowel movements. Objective Data Objective Data Vital Signs: Vital Signs Temp Pulse Resp BP Pulse Ox 97.6 F L 63 18 110/73 95 08/16/21 07:53 08/16/21 07:53 08/16/21 07:53 08/16/21 07:53 08/16/21 08:04 Oxygen Delivery Method Room Air Weight: 181 lb 10.574 oz Body Mass Index (BMI) 27.6 Intake & Output: Intake and Output for Last 24 Hours 08/14/21 08/15/21 08/16/21 23:59 23:59 23:59 Intake Total 4162.51 / 8162.51 7135.00 / 7435.00 1766.67 / 1766.67 Balance 4162.51 / 8162.51 7135.00 / 7435.00 1766.67 / 1766.67 Lab / Micro Data Result Diagrams: 08/16/21 04:58 08/16/21 04:58 Labs: Laboratory Results - last 24 hr 08/16/21 04:58: WBC 10.9, RBC 4.02 L, Hgb 11.5 L, Hct 35.4 L, MCV 88.1, MCH 28.6, MCHC 32.5, RDW Std Deviation 43.5, RDW Coeff of Karla 13.4, Plt Count 309, MPV 9.0, Immature Gran % (Auto) 0.500, Neut % (Auto) 80.3 H, Lymph % (Auto) 11.8 L, [place] % (Auto) 7.3, Eos % (Auto) 0.0, Baso % (Auto) 0.1, Absolute Neuts (auto) 8.7 H, Absolute Lymphs (auto) 1.28, Nucleated RBC % 0 08/16/21 04:58: Sodium 140, Potassium 3.8, Chloride 109 H, Carbon Dioxide 26.0, Anion Gap 5, BUN 8, Creatinine 0.53 L, Estim Creat Clear Calc 162.26, Est GFR (MDRD) Af Amer 178, Est GFR (MDRD) Non-Af 147, BUN/Creatinine Ratio 15.0, Glucose 112 H, Calcium 8.0 L, Total Bilirubin 0.40, AST 9 L, ALT 17, Alkaline Phosphatase 51, Total Protein 6.1 L, Albumin 2.7 L, Globulin 3.4, Albumin/Globulin Ratio 0.8 L Micro: Microbiology 08/15/21 01:21 Stool Stool Lactoferrin - Final 08/15/21 01:21 Stool Enteric Bacteriology - Final 08/15/21 01:21 Stool C. difficile DNA Amplification - Final 08/14/21 01:48 Urine, Clean Catch Urine Culture - Final Mixed Gram Positive Organisms Physical Exam Const alert General Appearance: cooperative Orientation / Consciousness: oriented to person HEENT hearing grossly normal bilaterally Head and Scalp: normal to inspection Face and Sinus: face symmetric Nose: external nose normal Mouth: oral and palatal mucosa normal Eyes conjunctivae normal General Eye: normal appearance of both eyes Neck full ROM General: normal visual inspection Lymph Lymphatic: no lymphadenopathy noted Chest inspection of chest normal and palpation of chest normal Chest: symmetrical chest wall rise Resp normal respiratory effort Effort and Inspection: able to speak in complete sentences Cardio regular rate GI non-distended Percussion: normal to percussion Rectal Exam: deferred Neuro Speech: speech normal Gait (Neuro): normal gait Assessment & Plan Assessment/Plan (1) Acute Crohn's disease: PLAN: She completed IV steroids for approximately 4 days plus IV antibiotics. I do not think she needs any more antibiotics at this time. I will give her a prescription for 40 mg of prednisone a day. She will need to schedule a follow-up visit so we can complete the work-up and possibly get her on an anti-TNF medication. She was also discovered to have a pelvic mass that was seen on CT scan. I told her in our [id number] as well as her father that she needs close follow-up with a derrick boat captain to determine the etiology of the pelvic mass. (2) Small bowel obstruction: PLAN: Small bowel obstruction likely secondary to acute Crohn's Crohn's disease. Fortunately it was able to resolve with IV steroids. All of this was explained to the patient. Charges/Coding Visit Charges Inpatient E&M: 57874 Subs Hosp L2
[2021-08-20 13:31] LABS: Calprotectin, Stool 978 ug/g (0-120)
== END 2021-08-16 13:31 | disposition home or self-care (01) | DRG 387 ==
LOC: ED 02:25 → PCU 04:22
PROVIDERS: Internal Medicine Gastroenterology; Admitting Provider Family Medicine; Emergency Provider Emergency Medicine; Visit Provider Student in an Organized Health Care Education/Training Program
PROC: 0DJD8ZZ Inspection of Lower Intestinal Tract, Via Natural or Artificial Opening Endoscopic (ICD-10-PCS; CPT 45378; principal; 2021-08-15 16:25)
DX: K50.90 Crohn's disease, unspecified, without complications (principal); K21.00 Gastro-esophageal reflux disease with esophagitis, without bleeding; K44.9 Diaphragmatic hernia without obstruction or gangrene; K52.9 Noninfective gastroenteritis and colitis, unspecified
CPT/HCPCS: 36415; 74018; 74177; 80053; 80307; 81001; 81025; 83605; 83630; 83690; 83735; 83993; 85025; 85652; 86140; 87086; 87088; 87493; 87506; 88305; 88313; 99284; J7030; Q9967; A4216; J2405

== ENCOUNTER → 2021-08-23 | Outpatient (CLI) | payer OTHER, SELFPAY ==
[2021-08-23 17:44] LABS: Absolute Lymphocyte Count 1.96 X10^3/uL (0.83-4.51); Absolute Neutrophil Count 12.9 X10^3/uL (2.0-7.7); Basophil# 0.04 X10^3/uL; Basophil% 0.2 % (0-1); Eosinophil# 0.01 X10^3/uL; Eosinophils% 0.1 % (0-5); Hematocrit 40.4 % (37-47); Hemoglobin 13.6 g/dL (12.0-15.0); Lymphocyte # 1.96 X10^3/ul (0.83-4.51); Mean Corp Hgb Conc 33.7 g/dL (32-36); Mean Corpuscular Hgb 29.1 pg (27.0-32.0); Mean Corpuscular Volume 86.3 fL (81-99); Mean Platelet Vol. 9.2 fl (6.2-12.0); Monocyte# 1.32 X10^3/uL; Monocyte% 8.1 % (0-10); NRBC Flagged by Analyzer 0 % (0-5); Neutrophil # 12.89 X10^3/uL (2.7-7.7); Neutrophil % 78.9 % (47-70); Platelet Count 377 K/mm3 (150-450); RBC Distribution Width CV 13.8 % (11.6-14.6); RBC Distribution Width SD 42.6 fl (35.1-43.9); Red Blood Count 4.68 M/mm3 (4.2-5.4); White Blood Count 16.3 K/mm3 (4.4-11.0)
[2021-08-23 18:16] LABS: Erythrocyte Sedimentation Rate 8 mm/hr (0-30)
[2021-08-23 19:13] LABS: AST(SGOT) 42 U/L (15-37); Alanine Aminotransfer ALT/SGPT 89 U/L (13-56); Albumin, Serum 3.5 g/dL (3.2-5.0); Alkaline Phosphatase 58 U/L (45-117); Anion Gap 9 (5-15); BUN 20 mg/dL (7-18); BUN/Creat Ratio 32.6 RATIO (10-20); CRP < 2.90 mg/L (0.0-3.0); Calcium,Total 8.7 mg/dL (8.5-10.1); Chloride 105 mmol/L (98-107); Creatinine, Serum 0.61 mg/dL (0.55-1.02); EST Glomerular Filtration Rate 125 mL/min (>60); Est Glom Filt Rate - Afr Amer 151 mL/min (>60); Globulin 3.6 g/dL (2.2-4.2); Glucose 132 mg/dL (74-106); Potassium 3.8 mmol/L (3.5-5.1); Protein, Total 7.1 g/dL (6.4-8.2); Sodium Level 138 mmol/L (136-145)
[2021-08-24 09:30] LABS: Rubella IgG Reactive (Nonreactive)
[2021-08-28 15:08] LABS: Anti-Centromere B Ab <0.2 AI (0.0-0.9); Anti-Chromatin <0.2 AI (0.0-0.9); Anti-Jo <0.2 AI (0.0-0.9); Anti-Scleroderma-70 AB <0.2 AI (0.0-0.9); RNP Ab <0.2 AI (0.0-0.9); SJOGREN'S Anti-SS-A test < 0.2 AI (0.0-0.9); SJOGREN'S Anti-SS-B test < 0.2 AI (0.0-0.9); Smith Ab <0.2 AI (0.0-0.9)
[2021-08-28 16:08] LABS: Endomysial Antibody IgA Negative (Negative); Immunoglobulin A 86 mg/dL (87-352)
[2021-08-29 09:26] LABS: t-Transglutaminase IgA <2 U/mL (0-3)
[2021-08-29 11:06] LABS: Anti-dsDNA Ab <1 IU/mL (0-9)
[2021-09-01 01:07] LABS: Cytoplasmic Ab (C-ANCA) <1:20 titer (Neg:<1:20); HEPATITIS B SURFACE AG Negative (Negative); Hep C Antibodies <0.1 s/co ratio (0.0-0.9); Hepatitis A IgM Antibody Negative (Negative); Hepatitis B Core AB IgM Negative (Negative); Immunoglobulin A 95 mg/dL (87-352); Immunoglobulin E 220 IU/mL (6-495); Immunoglobulin G 1191 mg/dL (586-1602); QNTFERON TB Mitogen Value > 10.00 IU/mL (.); QNTFERON TB Nil Value 0.02 IU/mL (.); QNTFERON TB1+ Ag Value 0.02 IU/mL (.); QNTFERON TB2+ Ag Value 0.02 IU/mL (.)
[2021-09-01 07:34] LABS: Immunoglobulin M 165 mg/dL (26-217); Mumps Antibody, IgM < 0.80 AU (0.00-0.79); Perinuclear Ab (P-ANCA) <1:20 titer (Neg:<1:20); QNTIFERON TB Positive Criteria Negative (Negative); V-Zoster IgG (Immunity) 1652 index (Immune >165)
== END | disposition home or self-care (01) ==
LOC: LAB 16:59
PROVIDERS: Referring Provider Internal Medicine Gastroenterology; Visit Provider Internal Medicine Gastroenterology
DX: K50.90 Crohn's disease, unspecified, without complications (principal)
CPT/HCPCS: 36415; 80053; 80074; 82784; 82785; 83516; 85025; 85652; 86140; 86225; 86235; 86255; 86256; 86480; 86735; 86762; 86787

== ENCOUNTER → 2022-05-28 | Outpatient (CLI) | payer OTHER, SELFPAY ==
[2022-05-28 12:41] VITALS: BP 121/64; PULSE 83; RESP 14; TEMP 36.2; O2SAT 100; BMI 29.7
[2022-05-28] MEDS: 0.9% NaCl IVPB Med Flush (250 mL) 15 ML IV (13:19)
[2022-05-28 14:40] VITALS: BP 112/61; PULSE 69; RESP 16; TEMP 36.4; O2SAT 100
== END | disposition home or self-care (01) ==
LOC: MEDOUTP 12:28
PROVIDERS: PCP Family Medicine; Referring Provider Internal Medicine Gastroenterology; Visit Provider Internal Medicine Gastroenterology
DX: K50.90 Crohn's disease, unspecified, without complications (principal)
CPT/HCPCS: 96365; 96361; J7050; A4216; J3358

== ENCOUNTER → 2023-01-02 | Outpatient (CLI) | payer OTHER, SELFPAY ==
[2023-01-02 11:45] LABS: Erythrocyte Sedimentation Rate 4 mm/hr (0-30)
[2023-01-02 11:48] LABS: Absolute Lymphocyte Count 1.82 X10^3/uL (0.83-4.51); Absolute Neutrophil Count 5.5 X10^3/uL (2.0-7.7); Basophil# 0.08 X10^3/uL; Basophil% 0.9 % (0-1); Eosinophil# 0.57 X10^3/uL; Eosinophils% 6.5 % (0-5); Hematocrit 39.2 % (37-47); Hemoglobin 12.5 g/dL (12.0-15.0); Lymphocyte # 1.82 X10^3/ul (0.83-4.51); Lymphocyte % 20.9 % (19-41); Mean Corp Hgb Conc 31.9 g/dL (32-36); Mean Corpuscular Hgb 27.3 pg (27.0-32.0); Mean Corpuscular Volume 85.6 fL (81-99); Mean Platelet Vol. 9.2 fl (6.2-12.0); Monocyte# 0.75 X10^3/uL; Monocyte% 8.6 % (0-10); NRBC Flagged by Analyzer 0 % (0-5); Neutrophil # 5.47 X10^3/uL (2.7-7.7); Neutrophil % 62.9 % (47-70); Platelet Count 319 K/mm3 (150-450); RBC Distribution Width CV 14.6 % (11.6-14.6); RBC Distribution Width SD 45.1 fl (35.1-43.9); Red Blood Count 4.58 M/mm3 (4.2-5.4); White Blood Count 8.7 K/mm3 (4.4-11.0)
[2023-01-02 12:30] LABS: AST(SGOT) 15 U/L (15-37); Alanine Aminotransfer ALT/SGPT 25 U/L (13-56); Albumin, Serum 3.6 g/dL (3.2-5.0); Alkaline Phosphatase 70 U/L (45-117); Anion Gap 3 (5-15); BUN 12 mg/dL (7-18); BUN/Creat Ratio 18.6 RATIO (10-20); CRP < 2.90 mg/L (0.0-3.0); Calcium,Total 8.5 mg/dL (8.5-10.1); Chloride 109 mmol/L (98-107); Creatinine, Serum 0.65 mg/dL (0.55-1.02); EST Glomerular Filtration Rate 116 mL/min (>60); Est Glom Filt Rate - Afr Amer 141 mL/min (>60); Globulin 3.5 g/dL (2.2-4.2); Glucose 84 mg/dL (74-106); Potassium 3.8 mmol/L (3.5-5.1); Protein, Total 7.1 g/dL (6.4-8.2); Sodium Level 138 mmol/L (136-145)
[2023-01-08 17:07] LABS: Calprotectin, Stool 48 ug/g (0-120)
== END | disposition home or self-care (01) ==
PROVIDERS: PCP Family Medicine; Referring Provider Internal Medicine Gastroenterology; Visit Provider Internal Medicine Gastroenterology
DX: K50.90 Crohn's disease, unspecified, without complications (principal)
CPT/HCPCS: 36415; 80053; 83630; 83993; 85025; 85652; 86140

== ENCOUNTER 2023-02-11 10:39 | Day surgery (SDC) | payer OTHER, SELFPAY ==
--- NOTE | 2023-02-11 10:57 | HP.PCM_ITS ---
History and Physical Date of Admission: 02/11/23 *[facility] hospitalization 08.14.21-08.16.21. [facility] ED presentation with symptoms of abdominal pain, nausea, vomiting and diarrhea with a history of Crohn?s disease and tubo-ovarian abscess. Previously established with Vibration Engineer Dr. Barnett and was last seen two weeks prior with bloodwork and endoscopy performed. Gastroenterology consulted 08.14.21 with EGD and colonoscopy performed 08.15.21 finding active Crohn?s disease and SBO secondary to Crohn?s. She was treated with IV steroids and antibiotics and was discharged with prednisone PO. ? Biochemical CBC, ESR, CMP without pertinent abnormality.? CRP H15.00, lipase L70 ? Stool C.Diff, EP WNL. ? Calprotectin H978, lactoferrin + CT abd/pel 08.14.21 lack of haustrations of descending colon with dilation and wall thickening; small amount of fluid in right hemipelvis; terminal ileum with increased markings in surrounding fat. EGD and colonoscopy 08.15.21. EGD found LA Grade A reflux esophagitis; medium hiatal hernia; erythematous duodenopathy. Colonoscopy found diffuse inflammation, severe and characterized by congestion, erythema, friability, granularity, aphthous ulceration in distal and terminal ileums. Biopsy without cryptitis or abscesses. OV 08.23.21 with significant improvement of symptoms. Prednisone continues ? Biochemical CBC, ESR, CMP, CRP, hepatitis, GAME, GAYLE comp, titer, TB without pertinent abnormality. Celiac, IgA deficient. ? LFT AST H42-ALT H89-AP 58, IgA L86 ? Stelara start. Infusion 05.28.22. Robotic enterolysis 12.04.21 at [facility] with several small bowel loops surgically lysed from anterior abdominal wall; large and small bowel were densely adherent to right adnexa (lysed); large peritoneal inclusion cyst; large peritoneal inclusion cyst involving right tube and ovary filled with old hemorrhagic type fluid; right ovary densely adherent to right pelvic sidewall with all very densely adherent to both large and small bowel. All areas lysed as appropriate. [facility] ED presentation 12.05.21 for abdominal pain following right ovarian cystectomy performed the day prior. Imaging performed and noted to have SBO at distal ileum. She was then transferred for treatment and admitted for management of SBO and Crohn?s exacerbation. Received IV Solu-medrol and was discharged with a tapering dose of prednisone. Discharged 12.11.21. [facility] ED presentation 12.12.21 with abdominal pain, nausea and emesis; noted to have bowel perforation and transferred to [facility] for treatment. Exploratory l aparotomy performed 12.12.21 noting feculent peritonitis; 2.5+L of stool evacuated; small bowel extremely adhesed (tedious lysis performed), boggy and dilated though viable and not ischemic; exudate material over entire abdomen and small bowel; severe terminal ileitis r/t Crohn?s disease with perforation; mid jejunal loop of small bowel fistulized to terminal ileum, bluntly without signs of Crohn?s disease and repaired; ileocolectomy performed with end ileostomy performed (ileocolic anastomosis unsafe, double barrel, colon would not reach), creation of ileostomy was difficult. Midline incision left open due to contamination concern. ? Pathology noted TI and R colon (19cm) with acute ulceration, granulation, adhesions and acute/chronic serositis; margins noted serositis but viable mucosa; submucosal lipomas; colon (8.5cm) with mucosal ulceration and features of IBD with margins noting inflammation; TI (15cm) noting IBD changes acute serositis and inflammatory reactive changes; margins note inflammation. Second laparotomy for abdominal wall fascial dehiscence. Fascia could not be safely from underlying small bowel; frozen and hostile abdomen. Procedure was then ended and incision again left open for healing. Several days later Amparo developed a small bowel obstruction. CT abd/pel .09.19 noting diffusely dilated small bowel and stomach, largely fluid-filled, most compatible with SBO. CR abd 01.06.22 noted nonobstructive gas pattern and removal of pigtail drain. Discharged 01.11.22. Continues to have an open wound that is being monitored by the surgeon, Dr. Brant Sandhu. No changes were made regarding her IBD. Message left with surgeon to discuss management of IBD 03.01.22 who was OK with her starting management. Contact with Aparna to discuss treatment options and she chose to Start Stelara. Infusion received 05.28.22. OV 06.19.22 with prolapsed stoma; surgeon seen who referred to [facility] surgeon who specializes in stomas. Contact 08.09.22 she is having colostomy reversal 10.10.22 with expected hospitalization of 2weeks. Undergoing colonoscopy prior to this to evaluate colon. Pt reports doing very well since last visit. Is stable on Stelara. Did have ostomy reversal last month. Is doing well after that. No complaints at this time. ROS Const Constitutional: No fatigue ENT ENT: No difficulty swallowing Gastro GI: Positive for diarrhea; No abdominal pain, belching, bloating, change in bowel habits, change in stool character, coffee ground emesis, constipation, cramping, heartburn, difficulty swallowing, feeling full early, excessive flatus, incontinent of stools, Vomiting blood/hematemesis, Blood in stool, loose stools, Black,tarry stools, nausea/dyspepsia, pain with swallowing, vomiting or other Musc Musculoskeletal: No joint pain Skin Skin: No yellowing of the eye or itchy eyes Psych Psychiatric: No anxiety and No depression Endo Endocrine: No fatigue Aller/Imm Allergy/Immunologic: No itchy eyes Jonh/Lymp Hematologic/Lymphatic: No easy bleeding or easy bruising Exam Const General: cooperative and comfortable Nutritional Appearance: average body habitus and well nourished [facility] Head: normal to inspection Ears: hearing grossly normal bilaterally Nose: external nose normal Face and sinus: normal facial exam Mouth: oral mucosae normal Throat: posterior oropharynx normal Eyes General: appearance normal, both eyes and all related structures Neck Neck: normal visual inspection Chest Chest palpation & inspection: normal inspection of the chest and normal palpation of entire chest wall Resp Effort & Inspection: normal respiratory effort Auscultation: Bilateral: Clear to Auscultation Cardio Palpation: normal PMI Rate: regular rate Rhythm: regular rhythm GI Inspection: normal to inspection Auscultation: normal bowel sounds Percussion: normal to percussion Palpation: no hepatosplenomegaly Skin General: no rashes or lesions noted Neuro General: patient alert Extrem General: normal to inspection Psych Affect: normal affect Quality Reporting Tobacco Screening ([facility] 138) Smoking Status: Never smoker Assessment and Plan Assessment and Plan (1) Crohn's disease: Status: Chronic Qualifiers: Gastrointestinal tract location: small intestine Digestive disease complication type: unspecified complication Qualified Code(s): K50.019 - Crohn's disease of small intestine with unspecified complications Plan: Concha has a history of small bowel Crohn's disease involving the terminal ileum. She recently underwent ileocolonic resection with temporary ileostomy. At this time, she is having to empty her ileostomy bag about 4 times today. She has no blood in the ileostomy bag. She does not have any abdominal pain. She is not showing any extraintestinal manifestations of Crohn's disease at this time. Being that she has a rash, arthralgia, arthritis, eye findings. We will need to check inflammatory markers including ESR, CRP, stool for fecal calprotectin, stool lactoferrin and imaging with a CT scan abdomen and pelvis with oral contrast. We will also need to perform a agile capsule and a real capsule to see if she has any active disease. She had her first dose of Stelara and did not have any side effects from the infusion. She is actually doing very well. She had her ileostomy reversed. She is having 3-4 normal bowel movements a day without any urgency, bleeding or nocturnal symptoms. At this time she is not showing any signs of extraintestinal Crohn disease such as changes in vision, rash, arthralgias or myalgias. She is 5 weeks post reversal of ileostomy. She will need repeat imaging and stool test along with biochemical profile to see how she is doing clinically. (2) Ileostomy present: Status: Chronic Comment: created 12.12.21 with hopeful future reversal (3) Small bowel obstruction: Status: Inactive Comment: s/p laparotomy 12.12.21 Orders: Orders Stool Lactoferrin/WBC Today K50.90 - Crohn's disease, unspecified, without complications, K58.9 - Irritable bowel syndrome without diarrhea Calprotectin, Stool Today K50.90 - Crohn's disease, unspecified, without complications Erythrocyte Sed Rate Today K50.90 - Crohn's disease, unspecified, without co mplications CRP Today K50.90 - Crohn's disease, unspecified, without complications CBC W/Diff, Automated Today K50.90 - Crohn's disease, unspecified, without complications Comprehensive Metabolic Profil Today K50.90 - Crohn's disease, unspecified, without complications Miscellaneous Lab Procedure Today K50.90 - Crohn's disease, unspecified, without complications I have examined the patient and the H&P has been reviewed. There are no clinical changes since date of exam.
[2023-02-11 11:07] LABS: Internal QC Validated? YES +Cl - CLEAR BKGD; Pregnancy, Urine Negative Negative
[2023-02-11] MEDS: Lactated Ringers 1,000 ML 15 ML IV (11:12)
[2023-02-11 11:13] VITALS: BP 137/86; PULSE 72; RESP 17; TEMP 36.6; O2SAT 100; BMI 31.9
--- NOTE | 2023-02-11 12:00 | COLBX_PTH ---
PATIENT: BARRETT CONN LOC: EN U#:[id number] AGE/SX: 28/F ROOM: RE02/11/[address]: Dr. Yao Marcelo DO : 1995 BED: DIS: 02/11/2023 SPEC #: [id number] RECD: 02/12/23 08:12 STATUS: REBA RESarahi #: [id number] TED: 02/11/23 12:[address]: Yao Marcelo DEPT: SURGICAL PATHOLOGY RECD BY: Haydee Jacques ENTERED: 02/12/23 08:13 SP TYPE: COLON BX OTHR DR: VICENTE BAKER DO Tissues: A - Ileum, NOS B - COLON BIOPSY C - COLON BIOPSY Procedures: Surgery Specimen Level IV HEADER OPERATION: Colonoscopy, biopsy PRE-OP DIAGNOSIS: Crohn's disease TISSUE SUBMITTED: A - Distal ileum biopsy, B - Anastomosis biopsy, C - Random colonic biopsy MICROSCOPIC DIAGNOSIS A. Distal ileum, biopsy: Focal acute enteritis. See comment. B. Anastomosis, biopsy: Fragments of colonic mucosa with focal hyperplastic change and mild eosinophilia of mucosa. C. Colon, random biopsy: No pathologic change. AM:reyes 02/13/2023 COMMENT A. Rare cryptitis is seen. Clinical correlation is suggested. MICROSCOPIC DESCRIPTION Slides are reviewed. GROSS DESCRIPTION A - Received in fixative is one container labeled with the patient's name and designated distal ileum biopsy. The specimen consists of multiple irregular fragments of light son soft tissue that in aggregate measure 2.0 x 0.5 x 0.1 cm. The specimen is totally submitted in one cassette. B - Received in fixative is one container labeled with the patient's name and designated anastomosis biopsy. The specimen consists of multiple irregular fragments of light son soft tissue that in aggregate measure 1.0 x 0.5 x 0.1 cm. The specimen is totally submitted in one cassette. C - Received in fixative is one container labeled with the patient's name and designated random colon biopsy. The specimen consists of multiple irregular fragments of light son soft tissue that in aggregate measure 1.0 x 1.0 x 0.5 cm. The specimen is totally submitted in one cassette. / AM:reyes 02/12/2023 TC:5 CPT: 60807 x3
[2023-02-11 12:35] VITALS: BP 102/66; BP 137/86; PULSE 74; RESP 16; TEMP 36.1; O2SAT 97
[2023-02-11 12:40] VITALS: BP 108/63; BP 137/86; PULSE 64; RESP 18; O2SAT 100
--- NOTE | 2023-02-11 12:40 | OP.COLON_ITS ---
Patient Name: Aparna Camarena Procedure Date: 02/11/2023 12:08 PM Date of : 1995 Age: 28 Procedure: Colonoscopy Indications: Follow-up of Crohn's disease of the small bowel, Disease activity assessment of Crohn's disease of the small bowel Providers: Yao Marcelo DO Medicines: Monitored Anesthesia Care Patient Profile: This is a 28 year old female. Refer to note in patient chart for documentation of history and physical. Last Colonoscopy: within the past 3 years. Complications: No immediate complications. Procedure: Pre-Anesthesia Assessment: - Prior to the procedure, a History and Physical was performed, and patient medications and allergies were reviewed. The patient is competent. The risks and benefits of the procedure and the sedation options and risks were discussed with the patient. All questions were answered and informed consent was obtained. Patient identification and proposed procedure were verified by the physician in the pre-procedure area. Mental Status Examination: alert and oriented. Airway Examination: normal oropharyngeal airway and neck mobility. Respiratory Examination: clear to auscultation. CV Examination: normal. Prophylactic Antibiotics: The patient does not require prophylactic antibiotics. Prior Anticoagulants: The patient has taken no anticoagulant or antiplatelet agents. ASA Grade Assessment: II - A patient with mild systemic disease. After reviewing the risks and benefits, the patient was deemed in satisfactory condition to undergo the procedure. The anesthesia plan was to use monitored anesthesia care (MAC). Immediately prior to administration of medications, the patient was re-assessed for adequacy to receive sedatives. The heart rate, respiratory rate, oxygen saturations, blood pressure, adequacy of pulmonary ventilation, and response to care were monitored throughout the procedure. The physical status of the patient was re-assessed after the procedure. After I obtained informed consent, the scope was passed under direct vision. Throughout the procedure, the patient's blood pressure, pulse, and oxygen saturations were monitored continuously. The was introduced through the anus and advanced to 10 cm into the ileum. The colonoscopy was performed without difficulty. The patient tolerated the procedure well. The quality of the bowel preparation was adequate. The terminal ileum, ileocecal valve, appendiceal orifice, and rectum were photographed. Scope In: 12:18:58 PM Scope Out: 12:30:21 PM Total Procedure Duration Time 0 hours 11 minutes 23 seconds Findings: The perianal and digital rectal examinations were normal. The colon (entire examined portion) appeared normal. Biopsies were taken with a cold forceps for histology. Verification of patient identification for the specimen was done. Estimated blood loss was minimal. There was evidence of a prior end-to-side ileo-colonic anastomosis in the ascending colon. This was patent and was characterized by edema, inflammation and ulceration. The anastomosis was traversed. Biopsies were taken with a cold forceps for histology. Verification of patient identification for the specimen was done. Estimated blood loss was minimal. A patchy area of the distal ileum was congested. Biopsies were taken with a cold forceps for histology. Verification of patient identification for the specimen was done. Estimated blood loss was minimal. Impression: - The entire examined colon is normal. Biopsied. - Patent end-to-side ileo-colonic anastomosis, characterized by edema, inflammation and ulceration. Biopsied. - Congested mucosa in the distal ileum. Biopsied. Recommendation: - Discharge patient to home. - Resume previous diet. - Continue present medications. - Await pathology results. - Repeat colonoscopy is recommended to check healing. The colonoscopy date will be determined after pathology results from today's exam become available for review. - Increase Stelera to every 4 weeks Procedure Code(s): --- Professional --- 44713, Colonoscopy, flexible; with biopsy, single or multiple CPT copyright 2021 [employer]. All rights reserved. The codes documented in this report are preliminary and upon hyperbaric technician review may be revised to meet current compliance requirements. Yao Marcelo DO 02/11/2023 12:39:49 PM This report has been signed electronically. Number of Addenda: 0 Note Initiated On: 02/11/2023 12:08 PM
--- NOTE | 2023-02-11 12:40 | OP.CCLET_ITS ---
02/11/2023 Benjamin Gay Do Re : Colonoscopy procedure for Aparna Camarena Dear Victor Hugo This procedure was performed on Saturday, February 11, 2023. My impressions and recommendations are as follows: Impressions : - The entire examined colon is normal. Biopsied. - Patent end-to-side ileo-colonic anastomosis, characterized by edema, inflammation and ulceration. Biopsied. - Congested mucosa in the distal ileum. Biopsied. Recommendations : - Discharge patient to home. - Resume previous diet. - Continue present medications. - Await pathology results. - Repeat colonoscopy is recommended to check healing. The colonoscopy date will be determined after pathology results from today's exam become available for review. - Increase Stelera to every 4 weeks My findings are described in the full procedure note, which is enclosed. If I can be of further assistance, please feel free to contact me at . Sincerely, Yao Marcelo, 02/11/2023 12:39:49 PM This report has been signed electronically.
[2023-02-11 12:45] VITALS: BP 107/67; BP 137/86; PULSE 66; RESP 18; O2SAT 99
[2023-02-11 12:49] VITALS: BP 108/66; BP 137/86; PULSE 62; RESP 18; TEMP 36.4; O2SAT 100
[2023-02-11 13:07] VITALS: BP 137/86
== END 2023-02-11 13:09 | disposition home or self-care (01) ==
LOC: EN 10:39 → AC 10:40
PROVIDERS: Anesthesiology; PCP Family Medicine; Referring Provider Family Medicine; Visit Provider Internal Medicine Gastroenterology
PROC: 0DJD8ZZ Inspection of Lower Intestinal Tract, Via Natural or Artificial Opening Endoscopic (ICD-10-PCS; CPT 45378; principal; 2023-02-11 11:55)
DX: K50.90 Crohn's disease, unspecified, without complications (principal); Z93.2 Ileostomy status; K56.609 Unspecified intestinal obstruction, unspecified as to partial versus complete obstruction; K63.89 Other specified diseases of intestine; D72.10 Eosinophilia, unspecified
CPT/HCPCS: 45380; 81025; 88305; J7120; J2405

== ENCOUNTER → 2023-11-03 | Outpatient (CLI) | payer BC, SELFPAY ==
[2023-11-03 10:42] LABS: Absolute Lymphocyte Count 1.64 X10^3/uL (0.83-4.51); Absolute Neutrophil Count 5.6 X10^3/uL (2.0-7.7); Basophil# 0.09 X10^3/uL; Basophil% 1.1 % (0-1); Eosinophil# 0.41 X10^3/uL; Eosinophils% 4.9 % (0-5); Hematocrit 42.1 % (37-47); Hemoglobin 13.6 g/dL (12.0-15.0); Lymphocyte # 1.64 X10^3/ul (0.83-4.51); Lymphocyte % 19.7 % (19-41); Mean Corp Hgb Conc 32.3 g/dL (32-36); Mean Corpuscular Hgb 26.8 pg (27.0-32.0); Mean Corpuscular Volume 82.9 fL (81-99); Mean Platelet Vol. 9.7 fl (6.2-12.0); Monocyte# 0.58 X10^3/uL; NRBC Flagged by Analyzer 0 % (0-5); Neutrophil # 5.56 X10^3/uL (2.7-7.7); Neutrophil % 66.9 % (47-70); Platelet Count 319 K/mm3 (150-450); RBC Distribution Width CV 14.9 % (11.6-14.6); RBC Distribution Width SD 45.4 fl (35.1-43.9); Red Blood Count 5.08 M/mm3 (4.2-5.4); White Blood Count 8.3 K/mm3 (4.4-11.0)
[2023-11-03 10:47] LABS: Erythrocyte Sedimentation Rate 7 mm/hr (0-30)
[2023-11-03 11:09] LABS: Vitamin B12 566 pg/mL (211-911)
[2023-11-03 11:43] LABS: AST(SGOT) 18 U/L (15-37); Alanine Aminotransfer ALT/SGPT 32 U/L (13-56); Albumin, Serum 3.7 g/dL (3.2-5.0); Alkaline Phosphatase 74 U/L (45-117); Anion Gap 6 (5-15); BUN 12 mg/dL (7-18); BUN/Creat Ratio 18.4 RATIO (10-20); CRP < 2.90 mg/L (0.0-3.0); Calcium,Total 8.7 mg/dL (8.5-10.1); Chloride 108 mmol/L (98-107); Creatinine, Serum 0.65 mg/dL (0.55-1.02); EST Glomerular Filtration Rate 114 mL/min (>60); Est Glom Filt Rate - Afr Amer 138 mL/min (>60); Globulin 3.7 g/dL (2.2-4.2); Glucose 97 mg/dL (74-106); LDH 168 U/L (84-246); Potassium 3.6 mmol/L (3.5-5.1); Protein, Total 7.4 g/dL (6.4-8.2); Sodium Level 138 mmol/L (136-145); Thyroid Stim Hormone (TSH) 1.85 uIU/mL (0.358-3.74)
[2023-11-08 10:41] LABS: Albumin 3.9 g/dL (2.9-4.4); Alpha-1-Globulins 0.2 g/dL (0.0-0.4); Alpha-2-Globulins 0.7 g/dL (0.4-1.0); Endomysial Antibody IgA Negative (Negative); Gamma Globulin 1.3 g/dL (0.4-1.8); Immunoglobulin A 73 mg/dL (87-352); Immunoglobulin E 183 IU/mL (6-495); Immunoglobulin G 1316 mg/dL (586-1602); Immunoglobulin M 156 mg/dL (26-217); QNTFERON TB Mitogen Value > 10.00 IU/mL (.); QNTFERON TB Nil Value 0 IU/mL (.); QNTFERON TB1+ Ag Value 0 IU/mL (.); QNTFERON TB2+ Ag Value 0 IU/mL (.); QNTIFERON TB Positive Criteria Negative (Negative); t-Transglutaminase IgA <2 U/mL (0-3)
[2023-11-08 10:42] LABS: Beef <0.10 kU/L (Class 0); Chocolate <0.10 kU/L (Class 0); Codfish <0.10 kU/L (Class 0); Corn <0.10 kU/L (Class 0); Egg, Whole <0.10 kU/L (Class 0); Milk (Cow) 0.16 kU/L (Class 0/I); Mussels <0.10 kU/L (Class 0); Peanut <0.10 kU/L (Class 0); Pork 0.93 kU/L (Class II); Salmon <0.10 kU/L (Class 0); Shrimp <0.10 kU/L (Class 0); Soybean <0.10 kU/L (Class 0); Tuna <0.10 kU/L (Class 0); Vitamin D 1,25-Dihydroxy 42.2 pg/mL (24.8-81.5); Wheat <0.10 kU/L (Class 0)
== END | disposition home or self-care (01) ==
PROVIDERS: PCP Family Medicine; Referring Provider Internal Medicine Gastroenterology; Visit Provider Internal Medicine Gastroenterology
DX: K50.019 Crohn's disease of small intestine with unspecified complications (principal)
CPT/HCPCS: 36415; 80053; 82607; 82652; 82746; 82784; 82785; 83516; 83615; 84165; 84443; 85025; 85652; 86003; 86005; 86140; 86255; 86334; 86480

== ENCOUNTER → 2025-01-11 | Outpatient (CLI) | payer BC, SELFPAY ==
[2025-01-11 11:40] LABS: Hematocrit 42.0 % (37-47); Hemoglobin 14.4 g/dL (12.0-15.0); Immature Granulocytes Count 0.070 X10^3/uL (0.0-0.0); Mean Corp Hgb Conc 34.3 g/dL (32-36); Mean Corpuscular Volume 86.2 fL (81-99); Mean Platelet Vol. 9.2 fl (6.2-12.0); NRBC Flagged by Analyzer 0 % (0-5); Platelet Count 309 K/mm3 (150-450); RBC Distribution Width CV 13.2 % (11.6-14.6); RBC Distribution Width SD 41.7 fl (35.1-43.9); Red Blood Count 4.87 M/mm3 (4.2-5.4); White Blood Count 14.0 K/mm3 (4.4-11.0)
[2025-01-11 12:14] LABS: AST(SGOT) 19 U/L (<=31); Alanine Aminotransfer ALT/SGPT 27 U/L (<=34); Albumin, Serum 4.2 g/dL (3.5-5.0); Alkaline Phosphatase 55 U/L (35-104); Anion Gap 12 (5-15); BUN 14 mg/dL (4-19); BUN/Creat Ratio 22.6 RATIO (10-20); Calcium,Total 9.1 mg/dL (7.6-11.0); Carbon Dioxide 19.0 mmol/L (21.0-32.0); Chloride 106 mmol/L (98-108); Globulin 3.2 g/dL (2.2-4.2); Glucose 114 mg/dL (70-99); Potassium 3.7 mmol/L (3.3-5.1); Vitamin B12 521 pg/mL (180-914)
[2025-01-11 12:15] LABS: CRP < 3.00 mg/L (0.0-3.0)
== END | disposition home or self-care (01) ==
LOC: LAB 10:59
PROVIDERS: PCP Family Medicine; Referring Provider Internal Medicine Gastroenterology; Visit Provider Internal Medicine Gastroenterology
DX: K50.019 Crohn's disease of small intestine with unspecified complications (principal)
CPT/HCPCS: 36415; 80053; 82607; 85025; 85652; 86140